=== PATIENT | female | born 1965 ===

== ENCOUNTER 2018-03-25 15:21 | Inpatient (IN) ==
[2018-03-25] MEDS ORDERED: Morphine Inj 4 MG/ML Vial ONE (15:27)
--- NOTE | 2018-03-25 15:50 | CT ---
EXAM DATE: 03/25/2018 3:46 PM EST AGE/SEX: 89 years / Female INDICATIONS: Trauma alert, fall. CLINICAL DATA: This is the patient's initial encounter. Patient reports that signs and symptoms have been present for 1 day and indicates a pain score of Nonresponsive. MEDICAL/SURGICAL HISTORY: Non-responsive. Non-responsive. RADIATION DOSE: 64.63 CTDI (mGy) COMPARISON: No prior exams available for comparison. TECHNIQUE: CT of the head without contrast. Using automated exposure control and adjustment of the mA and/or kV according to patient size, radiation dose was kept as low as reasonably achievable to ob tain optimal diagnostic quality images. DICOM format image data is available electronically for revi ew and comparison. FINDINGS: Cerebrum: The ventricles are normal for age. No evidence of midline shift, mass lesion, hemorrhage or acute infarction. No extraaxial fluid collections are seen. Posterior Fossa: The cerebellum and brainstem are intact. The 4th ventricle is midline. The cerebe llopontine angle is unremarkable. Extracranial: The visualized portion of the orbits is intact. Skull: The calvaria is intact. No evidence of skull fracture. CONCLUSION: 1. No acute intracranial abnormality . . Electronically signed by: Tyrell Spencer MD Board Certified Radiologist 03/25/2018 3:49 PM EST
[2018-03-25 15:52] LABS: Baso # (Auto) 0.2 th/mm3 (0.0-0.2); Baso % (Auto) 1.5 % (0.0-2.0); Eos # (Auto) 0.1 th/mm3 (0.0-0.4); Eos % (Auto) 1.1 % (0.0-4.0); Hematocrit 40.4 % (35.0-46.0); Hemoglobin 13.6 gm/dL (11.6-15.3); Lymph # (Auto) 3.6 th/mm3 (1.0-4.8); Mean Corpuscular HGB Conc 33.7 % (32.0-36.0); Mean Corpuscular Hemoglobin 33.1 pg (27.0-34.0); Mean Corpuscular Volume 98.3 fL (80.0-100.0); Mean Platelet Volume 8.4 fL (7.0-11.0); Mono # (Auto) 0.6 th/mm3 (0.0-0.9); Mono % (Auto) 4.4 % (0.0-8.0); Neut # (Auto) 8.3 th/mm3 (1.8-7.7); Platelet Count 330 th/mm3 (150-450); Red Blood Count 4.11 mil/mm3 (4.00-5.30); Red Cell Distribution Width 14.5 % (11.6-17.2); White Blood Count 12.8 th/mm3 (4.0-11.0)
--- NOTE | 2018-03-25 15:53 | CT ---
EXAM DATE: 03/25/2018 3:48 PM EST AGE/SEX: 89 years / Female INDICATIONS: Trauma alert, fall. CLINICAL DATA: This is the patient's initial encounter. Patient reports that signs and symptoms have been present for 1 day and indicates a pain score of Nonresponsive. MEDICAL/SURGICAL HISTORY: Non-responsive. Non-responsive. RADIATION DOSE: 19.52 CTDI (mGy) COMPARISON: [facility] – [place] THORACIC SPINE W/O CONTRAST, 03/25/2018. . TECHNIQUE: Contiguous axial images were obtained using helical multirow detector technique. The vol umetric data was post-processed with multiplanar reconstruction in oblique axial, sagittal, and coron al planes. Using automated exposure control and adjustment of the mA and/or kV according to patient s ize, radiation dose was kept as low as reasonably achievable to obtain optimal diagnostic quality yossi ges. DICOM format image data is available electronically for review and comparison. FINDINGS: Vertebrae: Normal vertebral body height. Degenerative changes Alignment: Normal. No subluxation. C2-3: The bony spinal canal is normal in size. No evidence of disc bulge or herniation. The neural foramina are bilaterally patent. C3-4: The bony spinal canal is normal in size. No evidence of disc bulge or herniation. The neural foramina are bilaterally patent. C4-5: Posterior disc osteophyte complex without canal stenosis. Mild bilateral neural foraminal narr owing. C5-6: Posterior disc osteophyte complex without canal stenosis. Moderate right and mild left neural foraminal narrowing. C6-7: Posterior disc osteophyte complex with mild canal stenosis. Moderate bilateral neural foramina l narrowing. C7-T1: The bony spinal canal is normal in size. No evidence of disc bulge or herniation. The neura l foramina are bilaterally patent. CONCLUSION: 1. Multilevel degenerative changes. 2. No fracture or spondylolisthesis. Electronically signed by: Tyrell Spencer MD Board Certified Radiologist 03/25/2018 3:52 PM EST
--- NOTE | 2018-03-25 15:56 | CT ---
EXAM DATE: 03/25/2018 3:51 PM EST AGE/SEX: 89 years / Female INDICATIONS: Trauma alert, fall. CLINICAL DATA: This is the patient's initial encounter. Patient reports that signs and symptoms have been present for 1 day and indicates a pain score of Nonresponsive. MEDICAL/SURGICAL HISTORY: Non-responsive. Non-responsive. RADIATION DOSE: 22.02 CTDI (mGy) COMPARISON: [facility] – [place] CERVICAL SPINE W/O CONTRAST, 03/25/2018. . TECHNIQUE: Contiguous axial images were acquired using a multirow detector CT scanner without contra st. Multiplanar reconstruction in the sagittal and coronal planes was performed. Using automated exp osure control and adjustment of the mA and/or kV according to patient size, radiation dose was kept a s low as reasonably achievable to obtain optimal diagnostic quality images. DICOM format image data is available electronically for review and comparison. FINDINGS: Vertebrae: Normal vertebral body height. Kyphosis and degenerative changes. Alignment: No spondylolisthesis. T1 - T2: Normal. T2 - T3: The thecal sac has a normal diameter. No evidence of disc bulge or protrusion. T3 - T4: The thecal sac has a normal diameter. No evidence of disc bulge or protrusion. T4 - T5: The thecal sac has a normal diameter. No evidence of disc bulge or protrusion. T5 - T6: The thecal sac has a normal diameter. No evidence of disc bulge or protrusion. T6 - T7: The thecal sac has a normal diameter. No evidence of disc bulge or protrusion. T7 - T8: The thecal sac has a normal diameter. No evidence of disc bulge or protrusion. T8 - T9: The thecal sac has a normal diameter. No evidence of disc bulge or protrusion. T9 - T10: The thecal sac has a normal diameter. No evidence of disc bulge or protrusion. T10 - T11: The thecal sac has a normal diameter. No evidence of disc bulge or protrusion. T11 - T12: The thecal sac has a normal diameter. No evidence of disc bulge or protrusion. T12 - L1: The thecal sac has a normal diameter. No evidence of disc bulge or protrusion. CONCLUSION: 1. Kyphosis and degenerative changes. 2. No fracture. Electronically signed by: Tyrell Spencer MD Board Certified Radiologist 03/25/2018 3:54 PM EST
[2018-03-25 16:02] LABS: Activated Partial Thrombo Time 21.9 sec (23.4-31.7); Prothrombin Time 9.9 sec (9.8-11.6)
[2018-03-25] MEDS ORDERED: Morphine Inj 4 MG, Morphine Inj 2 MG IV.PUSH ONE ×2 (16:40)
--- NOTE | 2018-03-25 18:39 | MR ---
EXAM DATE: 03/25/2018 6:34 PM EST AGE/SEX: 89 years / Female INDICATIONS: Trauma. CLINICAL DATA: This is the patient's initial encounter. Patient reports that signs and symptoms have been present for 1 day and indicates a pain score of 0/10. MEDICAL/SURGICAL HISTORY: . Crohn's disease. Cholecystectomy. Appendectomy. Tubal ligation. COMPARISON: No prior exams available for comparison. TECHNIQUE: Multiplanar, multisequence MRI examination of the cervical spine was performed without co ntrast. FINDINGS: At C2-3-4 there is no significant abnormality. At C4-5 there is a broad-based disc osteophyte complex effacing the thecal sac minimal impression on the anterior cord. Mild foraminal stenosis. At C5-6 there is a broad-based disc protrusion and osteophytic ridging, worse on the right side with the moderate AP canal stenosis, mild cord compression and right greater than left foraminal stenosis. At C6-7 there is a broad-based disc protrusion with a mild AP canal stenosis and mild impression and flattening of the cord. Mild bilateral foraminal stenosis. At C7-T1 there is no significant abnormality. No acute fracture or subluxation. No definite cord signal abnormality. CONCLUSION: 1. At C5-6 there is a broad-based disc protrusion, worse on the right side with moderate AP canal st enosis, mild cord compression and foraminal stenosis, worse on the right. 2. At C6-7 is a broad-based disc protrusion with mild AP canal stenosis and mild flattening of the c ord. 3. At C4-5 there is a mild impression on the anterior cord from disc protrusion. 4. No acute fracture or spondylolisthesis. Electronically signed by: Amor Michael MD Board Certified Radiologist 03/25/2018 6:37 PM EST
[2018-03-25] MEDS ORDERED: Morphine Inj 4 MG/ML Vial IV.PUSH ONE (19:00)
--- NOTE | 2018-03-25 19:21 | ED ---
HPI General Chief Complaint: Trauma Alert Stated Complaint: Trauma Alert Time Seen by Provider: 03/25/18 19:48 Source: patient Mode of arrival: ambulatory Limitations: no limitations History of Present Illness HPI narrative: This is a patient who presents having had a mechanical fall slipping backwards onto a doorway prior to arrival hitting her head and her mid back. She is reporting severe neck and upper back pain, constant, moderate severity associated with numbness and tingling in her left fourth and fifth digits and some weakness in her left lower extremity with some numbness in her left small toe. She does have a history of chronic spinal stenosis and disc herniations in the cervical spine. She is not sure if she lost consciousness. Related Data Home Medications Medication Instructions Recorded Confirmed allopurinol 100 mg PO DAILY 03/25/18 03/25/18 carvedilol 3.125 mg PO BID 03/25/18 03/25/18 clonazepam 0.5 mg PO TID 03/25/18 03/25/18 mesalamine 400 mg PO QID 03/25/18 03/25/18 pantoprazole [Protonix] 40 mg PO DAILY 03/25/18 03/25/18 clonazepam 0.05 mg/kg PO TID 03/30/18 03/30/18 Allergies Allergy/AdvReac Type Severity Reaction Status Date / Time piperacillin [From Zosyn] Allergy Anaphylaxis Verified 03/25/18 16:11 Sulfa (Sulfonamide Allergy Anaphylaxis Verified 03/25/18 16:11 Antibiotics) tazobactam [From Zosyn] Allergy Anaphylaxis Verified 03/25/18 16:11 Review of Systems ROS: all other systems reviewed are negative [facility] Medical History Medical History Bulging disc (Acute) Chronic ulcerative colitis (Acute) Crohns disease (Acute) FHx: cholecystectomy (Acute) Spinal stenosis (Acute) Surgical History Surgical History History of appendectomy (Acute) Social History Social History Substance History: No History of Abuse Second Hand Smoke Exposure: No Smoking Status: Former smoker How Often Do You Have a Drink Containing Alcohol: Never Recent Travel in [facility] within the Last 8 Weeks: No Recent Out of Country Travel within the Last 8 Weeks: No Immunization History Tetanus Immunization: <5 Years Exam Narrative Exam Narrative: GENERAL:Well appearing, no acute distress SKIN: Focused skin assessment warm and dry. HEAD: Atraumatic. Normocephalic. EYES: Pupils equal and round. No injection or drainage. ENT: Moist mucous membranes NECK: Trachea midline. Cervical collar is immobilized. CARDIOVASCULAR: Regular rate and rhythm. No murmur appreciated. RESPIRATORY: Clear to auscultation. Breath sounds equal bilaterally. GASTROINTESTINAL: Abdomen soft, non-tender, nondistended. MUSCULOSKELETAL: No obvious deformities. NEUROLOGICAL: Awake and alert. No obvious cranial nerve deficits. Decreased sensation in the left fourth and fifth digit. 4 out of 5 strength in left lower extremity. PSYCHIATRIC: Appropriate mood and affect; insight and judgment normal. Course Initial Documented Vital Signs Pulse Oximetry 97 03/25/18 15:35 Last Documented Vital Signs Temperature 99.0 F 03/30/18 16:00 Pulse Rate 81 03/30/18 16:00 Respiratory Rate 18 03/30/18 16:00 Blood Pressure 113/74 03/30/18 17:55 Pulse Oximetry 93 L 03/30/18 16:00 Sign Out Sign Out Data: Patient Sign Out occurred on 03/25/18 at 19:50. Patient's care was discussed, and care was transferred from Danica Chowdhury MD to Madelaine Weinberg. Sign Out Comment: Trauma patient s/p fall pending neurosurgery evaluation Last updated by Danica Chowdhury MD at 03/25/18 19:48 Post-Handoff Eval: Patient was brought in as a trauma alert for a fall and complaining of left arm weakness. She was seen by the previous ER physician. Please refer to her history and physical for further details. Imaging studies including MRI of the cervical spine was done which shows severe disc disease. Signout was to formulate a plan regarding neurosurgical consultation and recommendation. I discussed the case with Dr. Morales who is on for neurosurgery and he has come to see the patient and has decided to admit her for the severe disc disease and surgical correction. I discussed it with Dr. Steen who is on-call for trauma who will admit the patient. Patient is hemodynamically stable with no further worsening of the neurologic deficit. Medical Decision Making MDM Narrative Medical decision making narrative: This is a patient who presented to the emergency department as a trauma alert. She was made a level [address]s were obtained of the head, cervical spine and thoracic spine which were reassuring. Patient continued to have neurologic symptoms so a cervical spine MRI was obtained which demonstrates several disc herniations with C6-C7 impinging on the cord. This appears to be acute on chronic. Neurosurgery was consulted and will see the patient. Patient was signed out to Dr. Weinberg. Case was discussed with Dr. Steen the trauma surgeon at 1455. Level 2 trauma alert was called. Medical Screen Exam Complete: Yes Emergency Medical Condition: Yes Lab Data Result diagrams: 03/28/18 04:33 03/27/18 04:53 Lab Results 03/25/18 03/25/18 03/25/18 Range/Units 15:30 15:30 15:30 WBC 12.8 H (4.0-11.0) th/mm3 RBC 4.11 (4.00-5.30) mil/mm3 Hgb 13.6 (11.6-15.3) gm/dL POC Hgb (Calc) 13.3 (11.6-15.3) g/dL Hct 40.4 (35.0-46.0) % POC Hct 39.0 (35-46.0) % MCV 98.3 (80.0-100.0) fL MCH 33.1 (27.0-34.0) pg MCHC 33.7 (32.0-36.0) % RDW 14.5 (11.6-17.2) % Plt Count 330 (150-450) th/mm3 MPV 8.4 (7.0-11.0) fL Neut % (Auto) 65.0 (16.0-70.0) % Lymph % (Auto) 28.0 (9.0-44.0) % [place] % (Auto) 4.4 (0.0-8.0) % Eos % (Auto) 1.1 (0.0-4.0) % Baso % (Auto) 1.5 (0.0-2.0) % Neut # (Auto) 8.3 H (1.8-7.7) th/mm3 Lymph # (Auto) 3.6 (1.0-4.8) th/mm3 [place] # (Auto) 0.6 (0.0-0.9) th/mm3 Eos # (Auto) 0.1 (0.0-0.4) th/mm3 Baso # (Auto) 0.2 (0.0-0.2) th/mm3 WBC Differential . Differential Comment Auto diff final PT 9.9 (9.8-11.6) sec INR 1.0 Ratio APTT 21.9 L (23.4-31.7) sec POC Sodium 141 (137-144) mmol/L Sodium (136-145) meq/L POC Potassium 4.8 (3.6-5.0) mmol/L Potassium (3.5-5.1) meq/L POC Chloride 106 (102-111) mmol/L Chloride (98-107) meq/L Carbon Dioxide (21.0-32.0) meq/L Anion Gap (5-15) meq/L POC BUN 8 (5-21) mg/dL BUN (7-18) mg/dL Creatinine (0.50-1.00) mg/dL POC Creatinine 0.7 (0.6-1.3) mg/dL Estimated GFR (>89) mL/min POC Glucose 98 (68-110) mg/dL Random Glucose (74-106) mg/dL Calcium (8.5-10.1) mg/dL Urine Color (Yellw/Straw) Urine Clarity (Clear) Urine pH (5.0-8.5) Ur Specific Marshall (1.002-1.035) Urine Protein (Neg-Trace) mg/dL Urine Glucose (UA) (Negative) mg/dL Urine Ketones (Negative) mg/dL Urine Occult Blood (Negative) Urine Nitrate (Negative) Urine Bilirubin (Negative) Urine Urobilinogen (Less than 2) mg/dL Ur Leukocyte Esterase (Negative) Urine RBC (0-3) /hpf Urine WBC (0-5) /hpf Ur Squamous Epith Cells (0-5) /hpf Micro UA Comment Ur Microscopic Review Urine Culture Comments Blood Type Antibody Screen 03/25/18 03/27/18 03/27/18 Range/Units 15:30 04:53 04:53 WBC 8.5 (4.0-11.0) th/mm3 RBC 3.63 L (4.00-5.30) mil/mm3 Hgb 11.7 (11.6-15.3) gm/dL POC Hgb (Calc) (11.6-15.3) g/dL Hct 35.5 (35.0-46.0) % POC Hct (35-46.0) % MCV 97.6 (80.0-100.0) fL MCH 32.3 (27.0-34.0) pg MCHC 33.1 (32.0-36.0) % RDW 14.4 (11.6-17.2) % Plt Count 311 (150-450) th/mm3 MPV 8.0 (7.0-11.0) fL Neut % (Auto) 57.9 (16.0-70.0) % Lymph % (Auto) 33.6 (9.0-44.0) % [place] % (Auto) 6.1 (0.0-8.0) % Eos % (Auto) 1.5 (0.0-4.0) % Baso % (Auto) 0.9 (0.0-2.0) % Neut # (Auto) 4.9 (1.8-7.7) th/mm3 Lymph # (Auto) 2.9 (1.0-4.8) th/mm3 [place] # (Auto) 0.5 (0.0-0.9) th/mm3 Eos # (Auto) 0.1 (0.0-0.4) th/mm3 Baso # (Auto) 0.1 (0.0-0.2) th/mm3 WBC Differential . Differential Comment Auto diff final PT (9.8-11.6) sec INR Ratio APTT (23.4-31.7) sec POC Sodium (137-144) mmol/L Sodium 143 (136-145) meq/L POC Potassium (3.6-5.0) mmol/L Potassium 3.7 (3.5-5.1) meq/L POC Chloride (102-111) mmol/L Chloride 107 (98-107) meq/L Carbon Dioxide 30.0 (21.0-32.0) meq/L Anion Gap 6 (5-15) meq/L POC BUN (5-21) mg/dL BUN 4 L (7-18) mg/dL Creatinine 0.83 (0.50-1.00) mg/dL POC Creatinine (0.6-1.3) mg/dL Estimated GFR 72 L (>89) mL/min POC Glucose (68-110) mg/dL Random Glucose 113 H (74-106) mg/dL Calcium 8.5 (8.5-10.1) mg/dL Urine Color (Yellw/Straw) Urine Clarity (Clear) Urine pH (5.0-8.5) Ur Specific Marshall (1.002-1.035) Urine Protein (Neg-Trace) mg/dL Urine Glucose (UA) (Negative) mg/dL Urine Ketones (Negative) mg/dL Urine Occult Blood (Negative) Urine Nitrate (Negative) Urine Bilirubin (Negative) Urine Urobilinogen (Less than 2) mg/dL Ur Leukocyte Esterase (Negative) Urine RBC (0-3) /hpf Urine WBC (0-5) /hpf Ur Squamous Epith Cells (0-5) /hpf Micro UA Comment Ur Microscopic Review Urine Culture Comments Blood Type A Positive Antibody Screen Negative 03/28/18 03/28/18 Range/Units 04:33 17:25 WBC 8.4 (4.0-11.0) th/mm3 RBC 3.42 L (4.00-5.30) mil/mm3 Hgb 11.4 L (11.6-15.3) gm/dL POC Hgb (Calc) (11.6-15.3) g/dL Hct 33.3 L (35.0-46.0) % POC Hct (35-46.0) % MCV 97.3 (80.0-100.0) fL MCH 33.4 (27.0-34.0) pg MCHC 34.3 (32.0-36.0) % RDW 14.1 (11.6-17.2) % Plt Count 245 (150-450) th/mm3 MPV 7.9 (7.0-11.0) fL Neut % (Auto) 57.2 (16.0-70.0) % Lymph % (Auto) 33.6 (9.0-44.0) % [place] % (Auto) 6.7 (0.0-8.0) % Eos % (Auto) 1.8 (0.0-4.0) % Baso % (Auto) 0.7 (0.0-2.0) % Neut # (Auto) 4.8 (1.8-7.7) th/mm3 Lymph # (Auto) 2.8 (1.0-4.8) th/mm3 [place] # (Auto) 0.6 (0.0-0.9) th/mm3 Eos # (Auto) 0.2 (0.0-0.4) th/mm3 Baso # (Auto) 0.1 (0.0-0.2) th/mm3 WBC Differential . Differential Comment Auto diff final PT (9.8-11.6) sec INR Ratio APTT (23.4-31.7) sec POC Sodium (137-144) mmol/L Sodium (136-145) meq/L POC Potassium (3.6-5.0) mmol/L Potassium (3.5-5.1) meq/L POC Chloride (102-111) mmol/L Chloride (98-107) meq/L Carbon Dioxide (21.0-32.0) meq/L Anion Gap (5-15) meq/L POC BUN (5-21) mg/dL BUN (7-18) mg/dL Creatinine (0.50-1.00) mg/dL POC Creatinine (0.6-1.3) mg/dL Estimated GFR (>89) mL/min POC Glucose (68-110) mg/dL Random Glucose (74-106) mg/dL Calcium (8.5-10.1) mg/dL Urine Color Yellow (Yellw/Straw) Urine Clarity Clear (Clear) Urine pH 6.0 (5.0-8.5) Ur Specific [place] 1.006 (1.002-1.035) Urine Protein Negative (Neg-Trace) mg/dL Urine Glucose (UA) Negative (Negative) mg/dL Urine Ketones Negative (Negative) mg/dL Urine Occult Blood Moderate H (Negative) Urine Nitrate Negative (Negative) Urine Bilirubin Negative (Negative) Urine Urobilinogen Less than 2 (Less than 2) mg/dL Ur Leukocyte Esterase Negative (Negative) Urine RBC 1 (0-3) /hpf Urine WBC 1 (0-5) /hpf Ur Squamous Epith Cells 1 (0-5) /hpf Micro UA Comment Culture not ind Ur Microscopic Review Not Reportable Urine Culture Comments Culture not ind Blood Type Antibody Screen Imaging Data Radiologist's impression: Thoracic Spine CT 03/25/18 00:00 CONCLUSION: 1. Kyphosis and degenerative changes. 2. No fracture. Cervical Spine CT 03/25/18 15:30 CONCLUSION: 1. Multilevel degenerative changes. 2. No fracture or spondylolisthesis. Head CT 03/25/18 15:30 CONCLUSION: 1. No acute intracranial abnormality . . Cervical Spine MRI 03/25/18 16:44 CONCLUSION: 1. At C5-6 there is a broad-based disc protrusion, worse on the right side with moderate AP canal stenosis, mild cord compression and foraminal stenosis, worse on the right. 2. At C6-7 is a broad-based disc protrusion with mild AP canal stenosis and mild flattening of the cord. 3. At C4-5 there is a mild impression on the anterior cord from disc protrusion. 4. No acute fracture or spondylolisthesis. Venous Doppler Study 03/27/18 00:00 CONCLUSION: Normal venous Doppler study of the right upper extremity. Chest X-Ray 03/27/18 06:00 CONCLUSION: No acute cardiopulmonary process Discharge Plan Discharge Disposition Patient Disposition: ED Admit(ED Internal Use Only) Discharge Condition Condition: Stable Discharge Order Discharge Orders: ED Use Only Admit Order (Routine); Ordered 03/25/18 Ordered By: Madelaine Weinberg Physicians Team ED Provider: Madelaine Weinberg Primary Care Provider: Primary Care Physici,No Attending Provider: Sincere Steen Other Providers: Luis Morales ; Kelvin Mauricio ; Zeke Gong ; Systems[employer] ; aJved Canela ; Olivia Marie ; Sincere Steen ; Jena Blanco ; Tammy Castelan ; Joanie Deras ; Hilda Celaya Status ED Status: Left Department Discharge Information Discharge Date/Time: 03/25/18 23:35
--- NOTE | 2018-03-25 19:50 | P.CONNS ---
History of Present Illness Service: Neurosurgery Consult date: 03/25/18 Requesting Physician: Danica Chowdhury Reason for Consult: Neck pain, disc herniations Primary Care Provider: No Primary Care Physician History of Present Illness: I was asked by Dr. Chowdhury to see and evaluate patient who presents to [facility] ER s/p mechanical fall slipping backwards onto a doorway prior to arrival hitting her head and her mid back. She is reporting severe neck and upper back pain, constant, moderate severity associated with numbness and tingling in her left fourth and fifth digits and some weakness in her left lower extremity with some numbness in her left small toe. She does have a history of chronic spinal stenosis and disc herniations in the cervical spine. She is not sure if she lost consciousness. Review of Systems All other systems reviewed negative except as stated in HPI PMFSH - History History Provided By: Patient - Medical History Medical History: Medical History (Last Reviewed 03/25/18 @ 19:48 by Luis Morales MD) Bulging disc Chronic ulcerative colitis Crohns disease FHx: cholecystectomy Spinal stenosis - Surgical History Surgical History: Surgical History (Last Reviewed 03/25/18 @ 19:48 by Luis Morales MD) History of appendectomy - Tobacco History Smoking Status: Former smoker - Alcohol History How Often Do You Have a Drink Containing Alcohol: Never - Substance Use History Substance History: No History of Abuse - Travel History Recent Travel in the [place] Within the Last 8 Weeks: No Recent Travel Out of the Country Within the Last 8 Weeks: No - Immunization History Tetanus Immunization: <5 Years Medications and Allergies Allergies Allergy/AdvReac Type Severity Reaction Status Date / Time piperacillin [From Zosyn] Allergy Anaphylaxis Verified 03/25/18 16:11 Sulfa (Sulfonamide Allergy Anaphylaxis Verified 03/25/18 16:11 Antibiotics) tazobactam [From Zosyn] Allergy Anaphylaxis Verified 03/25/18 16:11 Home Medications Medication Instructions Recorded Confirmed Type allopurinol 100 mg PO DAILY 03/25/18 03/25/18 History carvedilol 3.125 mg PO BID 03/25/18 03/25/18 History clonazepam 0.5 mg PO TID 03/25/18 03/25/18 History mesalamine 400 mg PO QID 03/25/18 03/25/18 History pantoprazole [Protonix] 40 mg PO DAILY 03/25/18 03/25/18 History Exam Vital signs: Vital Signs 03/25/18 15:35 03/25/18 16:03 03/25/18 16:07 Temperature 99.1 F Pulse Rate 105 H 90 Respiratory Rate 23 18 Blood Pressure 120/70 150/76 H Pulse Oximetry 97 97 98 03/25/18 16:09 03/25/18 17:07 03/25/18 18:00 Temperature Pulse Rate 105 H 88 82 Respiratory Rate 20 20 Blood Pressure 138/85 132/71 Pulse Oximetry 98 97 96 03/25/18 19:10 03/25/18 19:22 Temperature Pulse Rate 87 Respiratory Rate 20 20 Blood Pressure 159/80 H Pulse Oximetry 97 Intake & Output 03/25/18 03/25/18 03/26/18 06:59 18:59 06:59 Weight 76.657 kg - Constitutional mild distress - Routine HEENT Exam Head: Present: normocephalic, atraumatic Eye: Present: EOMI, PERRL, normal accommodation ENT: Present: mucous membranes moist, oropharynx clear - Routine Neck Exam Present: trachea midline Comments: some posterior cervical spine muscle spasm Cervical collar in place. - Routine Respiratory Exam Present: CTA bilaterally - Routine Cardiovascular Exam Present: RRR - Routine Abdominal Exam Present: soft, normoactive bowel sounds - Routine Extremities Exam Present: full ROM, pulses intact, normal capillary refill - Routine Skin Exam Present: intact, warm, normal turgor - Routine Neurological Exam Mental status: AAOx3 Speech: fluent CNII-XII: intact Motor: Left C6/7 weakness 4+/5, Sensory: Decreased LT, decreased PP along Left C6 distribution - Detailed Neurological Exam: Coma Scale Eye Opening: Spontaneous Verbal Response: Oriented Motor Response: Obey commands Suni Coma Scale Total: 15 - Routine Psychiatric Exam Present: normal affect, normal thought process, cooperative Results - Laboratory Findings CBC and BMP: 03/25/18 15:30 Abnormal lab findings: Abnormal Labs 03/25/18 03/25/18 15:30 15:30 WBC 12.8 H Neut # (Auto) 8.3 H APTT 21.9 L - Diagnostic Findings EKG: report reviewed, image reviewed Additional findings: Head, cervical and thoracic CT Cervical MRI all were reviewed. Assessment and Plan - Plan 54 yo female with multi-level cervical disease,with progressive neck pain and left upper extremity radiculopathy s/p fall. GCS-15 Acute on chronic disc disease would admit for pain control Neuro checks q 4hrs soft cervical collar for comfort No indications for steroid therapy Will follow
[2018-03-25] MEDS ORDERED: HYDROmorphone PF Inj 1 MG/ML Ampul IV.PUSH PRN (22:11)
[2018-03-25] MEDS: Sod Chloride 0.9% Inj 1,000 ML IV.CONT SCH (22:49)
[2018-03-25] MEDS: Docusate Sodium 100 MG Capsule PO SCH (22:49)
[2018-03-25] MEDS ORDERED: Pantoprazole Inj 40 MG Vial IV.PUSH SCH (23:00)
[2018-03-26] MEDS: Enoxaparin Inj 30 MG/0.3 ML Syringe SQ SCH ×3 (01:45→20:31)
[2018-03-26] MEDS ORDERED: Chlorhexidine Gluconate 2% 1 Pack (2 Cloths) TOPICAL SCH (04:00)
[2018-03-26] MEDS ORDERED: Chlorhexidine Gluconate 2% 1 Pack (2 Cloths) TOPICAL PRN (04:00)
[2018-03-26] MEDS: Sod Chloride 0.9% Inj 1,000 ML IV.CONT SCH ×2 (08:17→18:32)
[2018-03-26] MEDS: Docusate Sodium 100 MG Capsule PO SCH ×2 (08:18→20:31)
[2018-03-26] MEDS: HYDROmorphone PF Inj 0.5 MG/0.5 ML Syringe IV.PUSH PRN ×4 (08:26→21:54)
[2018-03-26] MEDS: Allopurinol 100 MG Tablet PO SCH (08:26)
--- NOTE | 2018-03-26 09:19 | MH ---
cc: Sincere Steen MD DATE OF ADMISSION: 03/25/2018 CHIEF COMPLAINT: Status post fall, neck pain. HISTORY OF PRESENT ILLNESS: The patient is a 54-year-old female who presents status post slip and fall. The patient was noted to lose her balance and fell in the doorway, hitting her neck and back, complaining of severe neck and upper back pain, also complains of weakness and numbness in the left fourth and fifth digits and left lower extremity. The patient noted to come to the trauma bay as a level 2 trauma. She was noted to be hemodynamically stable, in a C-collar, on a back board. Primary and secondary surveys were done. The patient was found to have a normal CT head. No fractures on CT C-spine. Further workup including MRI showed stenosis and some flattening of cord. General neurosurgery consultations. The patient noted to have history of cervical and upper back pain in the past. This is noted to be somewhat acute on chronic. The patient denied any loss of consciousness and otherwise no complaints. PAST MEDICAL HISTORY: Ulcerative colitis, Crohn disease, inflammatory bowel disease, acute appendicitis, back pain. PAST SURGICAL HISTORY: Appendectomy. SOCIAL HISTORY: History of smoking. Denies current smoking, ETOH or IVDA. ALLERGIES: PIPERACILLIN, SULFA, AND TAZOBACTAM. MEDICATIONS: See EMR, prednisone. FAMILY HISTORY: Mother with hypertension. Father with coronary artery disease and OR. REVIEW OF SYSTEMS: A 12-point review of systems done, otherwise negative except as above. PHYSICAL EXAMINATION: GENERAL: No acute distress. VITAL SIGNS: Temperature 99.1, pulse 105, respirations 23, blood pressure 120/70, saturation 97%. HEENT: Pupils equal, round and reactive. NECK: C-collar in place. LUNGS: Clear to auscultation, bilateral expansion. Clavicles nontender. HEART: S1, S2, regular. ABDOMEN: Soft, nontender, nondistended. EXTREMITIES: Warm and well perfused. NEUROLOGIC: With 3.5-4/5 motor left upper and lower extremity, 5/5 motor right upper and lower extremity. Sensation intact with the exception of left upper and lower extremity. BACK: No step-offs or tenderness to palpation lower cervical, upper thoracic. PSYCHIATRIC: Appropriate mood. Appropriate insight. LABORATORY AND DIAGNOSTIC DATA: WBC is 12.8, hemoglobin 13.6, hematocrit 40.4, platelets 330. Sodium 141, potassium 4.8, chloride 106, BUN 8, creatinine 0.7, glucose 98. CT scans reviewed by myself showing: CT head: No evidence of fracture, DJD. CT C-spine: DJD, no fracture. CT T-spine: Kyphosis and degenerative changes, no fracture. MRI spine: C5-C6 broad-based protrusion of disc, mild cord compression C6-C7, disc protrusion, canal stenosis C4-C5, mild impression and anterior cord protrusion. No evidence of fracture. ASSESSMENT: 1. The patient is a 54-year-old female status post trip and fall. 2. The patient with acute on chronic spinal stenosis, symptomatic. PLAN: After a full workup, the patient with the above-noted issues. At this point, the patient needs close monitoring with neuro checks. The patient can go to surgical floor. Consultation for neurosurgery for operative planning and further management. The patient can have a diet, pain control, IV fluids, DVT prophylaxis. The patient noted with a history of superficial left upper extremity clot, not currently on treatment. Will continue to follow the patient for further investigation of ongoing evidence of other injuries. MD RICARDO Whittington/freddie/guera , 03:27 AM , 03:36 AM
--- NOTE | 2018-03-26 09:30 | P.PN ---
Subjective Interval history: Trauma PTD: 1 Patient sitting up in bed. No distress noted. Patient complains of chronic nausea, "well I have Crohn's and ulcerative colitis." Patient complains of pain to bilateral arms and left leg. Patient complains of having no feeling to left ring finger and left pinky. Additionally, patient is weak to left lower extremity, and describes no feeling to her left fourth and fifth toes. "It feels like my spine is being squished, and my head is going to pop. It is un-freaking real." Patient states, "Dr. Morales said I am going to have surgery on Tuesday." Physical Exam Vital signs: Vital Signs 03/25/18 15:35 03/25/18 16:03 03/25/18 16:07 Temperature 99.1 F Pulse Rate 105 H 90 Respiratory Rate 23 18 Blood Pressure 120/70 150/76 H Pulse Oximetry 97 97 98 03/25/18 16:09 03/25/18 17:07 03/25/18 18:00 Temperature Pulse Rate 105 H 88 82 Respiratory Rate 20 20 Blood Pressure 138/85 132/71 Pulse Oximetry 98 97 96 03/25/18 19:10 03/25/18 19:22 03/25/18 22:29 Temperature Pulse Rate 87 Respiratory Rate 20 20 Blood Pressure 159/80 H Pulse Oximetry 97 98 03/25/18 22:57 03/25/18 23:15 03/26/18 04:00 Temperature 97.6 F 97.9 F Pulse Rate 78 75 76 Respiratory Rate 16 18 18 Blood Pressure 137/71 146/83 H 112/70 Pulse Oximetry 95 93 L 95 Intake & Output 03/25/18 03/26/18 03/26/18 18:59 06:59 18:59 Intake Total 0 / 0 900 / 900 Balance 0 / 0 900 / 900 Weight 76.657 kg 74.7 kg Intake: IV 900 / 900 NS Inj 1,000 ML @ 100 mls/hr IV 900 / 900 .CONT .Q10H [facility] Rx#:[id number] Oral 0 / 0 Other: # Voids 2 # Bowel Movements 0 Narrative: GENERAL: This is a 50-lacey year old female sitting up in bed. SKIN: Warm and dry. HEAD: Atraumatic. Normocephalic. EYES: PERRLA ENT: No nasal bleeding or discharge. Mucous membranes pink and moist. NECK: Soft cervical collar in place. Trachea midline. No JVD. CARDIOVASCULAR: Regular rate and rhythm. RESPIRATORY: No accessory muscle use. Lungs are clear to auscultation. Breath sounds equal bilaterally. No distress or dyspnea. GASTROINTESTINAL: BS + x 4 quads. Abdomen soft, non-tender, nondistended. MUSCULOSKELETAL: Extremities without cyanosis, or edema. + peripheral pulses x 4 extremities. Warm with good capillary refill. Patient describes not having feeling to her left ring and pinky finger. MAEW. Left lower extremity is weaker than right. Patient also describes not having feeling to her left fourth and fifth toes. NEUROLOGICAL: Awake and alert. Normal speech and pattern. Results - Labs CBC & Chem 7: 03/25/18 15:30 Laboratory Results - last 24 hr 03/25/18 03/25/18 03/25/18 15:30 15:30 15:30 WBC 12.8 H RBC 4.11 Hgb 13.6 POC Hgb (Calc) 13.3 Hct 40.4 POC Hct 39.0 MCV 98.3 MCH 33.1 MCHC 33.7 RDW 14.5 Plt Count 330 MPV 8.4 Neut % (Auto) 65.0 Lymph % (Auto) 28.0 Logan % (Auto) 4.4 Eos % (Auto) 1.1 Baso % (Auto) 1.5 Neut # (Auto) 8.3 H Lymph # (Auto) 3.6 Logan # (Auto) 0.6 Eos # (Auto) 0.1 Baso # (Auto) 0.2 WBC Differential . Differential Comment Auto diff final PT 9.9 INR 1.0 APTT 21.9 L POC Sodium 141 POC Potassium 4.8 POC Chloride 106 POC BUN 8 POC Creatinine 0.7 POC Glucose 98 Blood Type Antibody Screen 03/25/18 15:30 WBC RBC Hgb POC Hgb (Calc) Hct POC Hct MCV MCH MCHC RDW Plt Count MPV Neut % (Auto) Lymph % (Auto) Logan % (Auto) Eos % (Auto) Baso % (Auto) Neut # (Auto) Lymph # (Auto) Logan # (Auto) Eos # (Auto) Baso # (Auto) WBC Differential Differential Comment PT INR APTT POC Sodium POC Potassium POC Chloride POC BUN POC Creatinine POC Glucose Blood Type A Positive Antibody Screen Negative - Imaging Impressions Thoracic Spine CT 03/25/18 00:00 CONCLUSION: 1. Kyphosis and degenerative changes. 2. No fracture. Cervical Spine CT 03/25/18 15:30 CONCLUSION: 1. Multilevel degenerative changes. 2. No fracture or spondylolisthesis. Head CT 03/25/18 15:30 CONCLUSION: 1. No acute intracranial abnormality . . Cervical Spine MRI 03/25/18 16:44 CONCLUSION: 1. At C5-6 there is a broad-based disc protrusion, worse on the right side with moderate AP canal stenosis, mild cord compression and foraminal stenosis, worse on the right. 2. At C6-7 is a broad-based disc protrusion with mild AP canal stenosis and mild flattening of the cord. 3. At C4-5 there is a mild impression on the anterior cord from disc protrusion. 4. No acute fracture or spondylolisthesis. Assessment and Plan - Assessment (1) Cord compression Code(s): G95.20 - Unspecified cord compression Status: Acute (2) Protrusion of cervical intervertebral disc Code(s): M50.20 - Other cervical disc displacement, unspecified cervical region Status: Acute - Plan [place]: This is a 75-wge-mstj-old female who sustained a mechanical fall. She slipped and fell backwards into a doorway. She hit her head, and mid back. She complained initially of tingling to her hands and weakness to her left lower extremity. GCS 15. INJURIES: C4-C5 mild disc protrusion and impression on anterior cord C5-C6 disc protrusion w/ mild cord compression C6-C7 disc herniations, impingement on the cord (chronic) PMHx: Chronic spinal stenosis. Disc herniations. Ulcerative colitis. Crohn's disease. Procedures: Consults: Neurosurgery. Case management. Diet: Regular diet. Tolerating po diet. Encourage good po intake with each meal. Pulmonary: Encourage good pulmonary toileting. IS at bedside and pt encouraged to use. Rationale for use explained to patient, and verbalized understanding. PAIN Management: Oxycodone 5-10 mg q4h. Dilaudid 0.5 mg q 4h for breakthrough pain. Added Neurontin 300 mg TID. Activity: OOB. PT and OT ordered. GI prophylaxis: Protonix 40 mg po Bowel regimen: Colace. MOM. Lactulose PRN. LBM: 0 DVT prophylaxis: Mechanical VTE with SCDs. Chemical management with Lovenox 30 mg BID SQ. DC Planning: Case management consulted for assistance with final discharge disposition. Await PT/OT re-eval after surgery on Tuesday with neurosurgery. Emotional support provided to patient and family at bedside and plan of care discussed. Discussed with RN at bedside. Discussed pt condition and plan of care with collaborating trauma surgeon. Patient is hemodynamically stable and being managed on the med/surg floor. The trauma team will round each day, and evaluate plan of care on a daily basis. C4-C5 mild disc protrusion and impression on anterior cord C5-C6 disc protrusion w/ mild cord compression C6-C7 disc herniations, impingement on the cord (chronic) Neurosurgery consulted and assisting in management and care Per patient, plan is for spinal stabilization surgery on Tuesday Supportive care Serial neuro checks Monitor closely Neurosurgery does not feel that steroids are warranted at this time Pain management PT and OT ordered Encourage out of bed -with assist Soft cervical collar in place Bowel regimen Lovenox and SCDs for DVT prophylaxis Pre-existing conditions Chronic spinal stenosis Disc herniations. Ulcerative colitis. Crohn's disease. Monitor closely Resume home medications Coreg 3.125 mg BID. Allopurinol. Mesalamine
--- NOTE | 2018-03-26 13:45 | P.DCO ---
- Physical Therapy Order: Evaluate and treat, Improve ambulation, Strength and gait training - Occupational Therapy Order: Evaluate and treat, Improve ADL, Gross motor coordination - Home Health Nursing Order: Medical education, Signs/symptoms of disease process, Medication education-adverse effect, Nursing assessment with vital signs - Case Management Consult Case Management Consult-Home Health: Yes - Certification I have seen patient Debbie Laws on 03/26/18. My clinical findings support the need for the requested home health care services because: Limited mobility due to disease progression, Deconditioned with increased weakness, Limited ability to care for self, High risk of falls, Infection with risk of complications I certify that my clinical findings support that this patient is homebound because: Post-op weakness, Impaired cognitive ability/safety, Unsteady gait/balance, Unsafe to leave home unassisted, Unable to use public transportation
[2018-03-26] MEDS ORDERED: Morphine Inj 4 MG/ML Vial ONE (14:56)
[2018-03-26] MEDS: Gabapentin 300 MG Capsule PO SCH (17:14)
[2018-03-26] MEDS: Mesalamine 800 MG Tablet DR PO SCH (17:52)
[2018-03-27] MEDS: HYDROmorphone PF Inj 0.5 MG/0.5 ML Syringe IV.PUSH PRN ×4 (02:44→19:33)
[2018-03-27 05:17] LABS: Baso # (Auto) 0.1 th/mm3 (0.0-0.2); Baso % (Auto) 0.9 % (0.0-2.0); Eos # (Auto) 0.1 th/mm3 (0.0-0.4); Eos % (Auto) 1.5 % (0.0-4.0); Hematocrit 35.5 % (35.0-46.0); Hemoglobin 11.7 gm/dL (11.6-15.3); Lymph # (Auto) 2.9 th/mm3 (1.0-4.8); Lymph % (Auto) 33.6 % (9.0-44.0); Mean Corpuscular HGB Conc 33.1 % (32.0-36.0); Mean Corpuscular Hemoglobin 32.3 pg (27.0-34.0); Mean Corpuscular Volume 97.6 fL (80.0-100.0); Mono # (Auto) 0.5 th/mm3 (0.0-0.9); Mono % (Auto) 6.1 % (0.0-8.0); Neut # (Auto) 4.9 th/mm3 (1.8-7.7); Neut % (Auto) 57.9 % (16.0-70.0); Platelet Count 311 th/mm3 (150-450); Red Blood Count 3.63 mil/mm3 (4.00-5.30); Red Cell Distribution Width 14.4 % (11.6-17.2); White Blood Count 8.5 th/mm3 (4.0-11.0)
[2018-03-27 05:43] LABS: Calcium 8.5 mg/dL (8.5-10.1); Potassium 3.7 meq/L (3.5-5.1)
[2018-03-27] MEDS: Sod Chloride 0.9% Inj 1,000 ML IV.CONT SCH ×2 (06:03→16:29)
--- NOTE | 2018-03-27 06:40 | XR ---
EXAM DATE: 03/27/2018 6:37 AM EST AGE/SEX: 52 years / Female INDICATIONS: Neck, upper back and upper chest pain. CLINICAL DATA: This is the patient's subsequent encounter. Patient reports that signs and symptoms h ave been present for 2 days and indicates a pain score of 10/10. MEDICAL/SURGICAL HISTORY: . fall, cervical spine injury None. COMPARISON: [facility] [place], CHEST 1V SINGLE AP, 01/01/2018. . FINDINGS: A single AP view of the chest demonstrates the lungs to be symmetrically aerated without evidence of mass, infiltrate or effusion. The cardiomediastinal contours are unremarkable. Osseous structures a re intact. CONCLUSION: No acute cardiopulmonary process Electronically signed by: Chino Velarde MD Board Certified Radiologist 03/27/2018 6:39 AM EST
--- NOTE | 2018-03-27 08:01 | P.PN ---
Subjective Interval history: Trauma PTD: 2 Patient sitting up in bed. No distress noted. Patient states, "all along my arms -it hurts." "Now my right arm is swollen, they cannot get any IVs in me." Patient states, "I had a PICC once before, and when they took it out, I had a blood clot." She states this was sometime last summer. Physical Exam Vital signs: Vital Signs 03/26/18 08:36 03/26/18 11:24 03/26/18 15:19 Temperature 99.5 F 99.1 F 99.1 F Pulse Rate 85 96 H 82 Respiratory Rate 16 16 16 Blood Pressure 122/76 150/80 H 134/84 Pulse Oximetry 92 L 92 L 93 L 03/26/18 19:30 03/26/18 23:40 03/27/18 04:20 Temperature 98.6 F 98.6 F 100.1 F H Pulse Rate 94 H 94 H 100 H Respiratory Rate 17 16 17 Blood Pressure 118/64 133/83 120/83 Pulse Oximetry 93 L 93 L 93 L Intake & Output 03/26/18 03/27/18 03/27/18 18:59 06:59 18:59 Intake Total 1532 / 1532 720 / 720 Balance 1532 / 1532 720 / 720 Weight 74.6 kg Intake: IV 1216 / 1216 NS Inj 1,000 ML @ 100 mls/hr IV 1216 / 1216 .CONT .Q10H [facility] Rx#:[id number] Oral 720 / 720 Other 316 / 316 Other: Other Intake Source Saline Solution # Voids 2 2 # Bowel Movements 0 Narrative: GENERAL: This is a 52 year old female sitting up in bed. No distress noted SKIN: Warm and dry. HEAD: Atraumatic. Normocephalic. EYES: PERRLA ENT: No nasal bleeding or discharge. Mucous membranes pink and moist. NECK: Soft cervical collar in place. Trachea midline. No JVD. CARDIOVASCULAR: Regular rate and rhythm. RESPIRATORY: No accessory muscle use. Lungs are clear to auscultation. Breath sounds equal bilaterally. No distress or dyspnea. GASTROINTESTINAL: BS + x 4 quads. Abdomen soft, non-tender, nondistended. MUSCULOSKELETAL: Extremities without cyanosis. Right upper extremity with swelling noted from elbow up to shoulder. Warm to touch. + peripheral pulses x 4 extremities. Warm with good capillary refill. Patient describes not having feeling to her left ring and pinky finger. MAEW. Left lower extremity is weaker than right. Patient also describes not having feeling to her left fourth and fifth toes. NEUROLOGICAL: Awake and alert. Normal speech and pattern. Results - Labs CBC & Chem 7: 03/27/18 04:53 03/27/18 04:53 Laboratory Results - last 24 hr 03/27/18 03/27/18 04:53 04:53 WBC 8.5 RBC 3.63 L Hgb 11.7 Hct 35.5 MCV 97.6 MCH 32.3 MCHC 33.1 RDW 14.4 Plt Count 311 MPV 8.0 Neut % (Auto) 57.9 Lymph % (Auto) 33.6 Bee % (Auto) 6.1 Eos % (Auto) 1.5 Baso % (Auto) 0.9 Neut # (Auto) 4.9 Lymph # (Auto) 2.9 Bee # (Auto) 0.5 Eos # (Auto) 0.1 Baso # (Auto) 0.1 WBC Differential . Differential Comment Auto diff final Sodium 143 Potassium 3.7 Chloride 107 Carbon Dioxide 30.0 Anion Gap 6 BUN 4 L Creatinine 0.83 Estimated GFR 72 L Random Glucose 113 H Calcium 8.5 - Imaging Impressions Chest X-Ray 03/27/18 06:00 CONCLUSION: No acute cardiopulmonary process Assessment and Plan - Assessment (1) Cord compression Code(s): G95.20 - Unspecified cord compression Status: Acute (2) Protrusion of cervical intervertebral disc Code(s): M50.20 - Other cervical disc displacement, unspecified cervical region Status: Acute - Plan [place]: This is a 60-pof-olxq-old female who sustained a mechanical fall. She slipped and fell backwards into a doorway. She hit her head, and mid back. She complained initially of tingling to her hands and weakness to her left lower extremity. GCS 15. INJURIES: C4-C5 mild disc protrusion and impression on anterior cord C5-C6 disc protrusion w/ mild cord compression C6-C7 disc herniations, impingement on the cord (chronic) PMHx: Chronic spinal stenosis. Disc herniations. Ulcerative colitis. Crohn's disease. Procedures: Consults: Neurosurgery. Case management. Diet: Regular diet. Tolerating po diet. Encourage good po intake with each meal. Pulmonary: Encourage good pulmonary toileting. IS at bedside and pt encouraged to use. Rationale for use explained to patient, and verbalized understanding. PAIN Management: Oxycodone 5-10 mg q4h. Dilaudid 0.5 mg q 4h for breakthrough pain. Neurontin 300 mg TID. Activity: OOB. PT and OT ordered. GI prophylaxis: Protonix 40 mg po Bowel regimen: Colace. MOM. Lactulose PRN. LBM: 0 DVT prophylaxis: Mechanical VTE with SCDs. Chemical management with Lovenox 30 mg BID SQ. DC Planning: Case management consulted for assistance with final discharge disposition. Emotional support provided to patient and family at bedside and plan of care discussed. Discussed with RN at bedside. Discussed pt condition and plan of care with collaborating trauma surgeon. Patient is hemodynamically stable and being managed on the med/surg floor. The trauma team will round each day, and evaluate plan of care on a daily basis. C4-C5 mild disc protrusion and impression on anterior cord C5-C6 disc protrusion w/ mild cord compression C6-C7 disc herniations, impingement on the cord (chronic) Neurosurgery consulted and assisting in management and care Waiting for final recommendation from neurosurgeons regarding plan for possible spinal stabilization tomorrow? Supportive care Serial neuro checks Monitor closely Neurosurgery does not feel that steroids are warranted at this time Pain management PT and OT ordered Encourage out of bed -with assist Soft cervical collar in place Bowel regimen Lovenox and SCDs for DVT prophylaxis Right upper extremity swelling IV infiltration vs DVT Patient states her right AC IV site infiltrated - that is when right upper extremity swelling began Obtain ultrasound right upper extremity to rule out DVT Pain management IV catheter has been removed Warm compresses Elevate right upper extremity Access site frequently Continue Lovenox and SCDs for DVT prophylaxis Pre-existing conditions Chronic spinal stenosis Disc herniations. Ulcerative colitis. Crohn's disease. Monitor closely Resume home medications Coreg 3.125 mg BID. Allopurinol. Mesalamine
[2018-03-27] MEDS: Mesalamine 800 MG Tablet DR PO SCH (09:00)
[2018-03-27] MEDS: Gabapentin 300 MG Capsule PO SCH ×3 (09:00→17:31)
[2018-03-27] MEDS: Enoxaparin Inj 30 MG/0.3 ML Syringe SQ SCH ×2 (09:00→20:40)
[2018-03-27] MEDS: Docusate Sodium 100 MG Capsule PO SCH ×2 (09:01→20:40)
[2018-03-27] MEDS: Allopurinol 100 MG Tablet PO SCH (09:01)
--- NOTE | 2018-03-27 11:33 | US ---
EXAM DATE: 03/27/2018 11:26 AM EST AGE/SEX: 52 years / Female INDICATIONS: Right arm pain. CLINICAL DATA: This is the patient's initial encounter. Patient reports that signs and symptoms have been present for 1 day and indicates a pain score of 6/10. MEDICAL/SURGICAL HISTORY: . Crohn's disease. . Cholecystectomy. Appendectomy. Tubal ligation. COMPARISON: No prior exams available for comparison. FINDINGS: The vessels are compressible and augmentation response is documented. No filling defects a re seen. The flow is phasic with respiration. Other: None. CONCLUSION: Normal venous Doppler study of the right upper extremity. Electronically signed by: Titus Phillips MD Board Certified Radiologist 03/27/2018 11:32 AM EST
[2018-03-27] MEDS: Acetaminophen 325 MG Tablet PO PRN ×2 (13:15→20:44)
--- NOTE | 2018-03-27 13:56 | P.PNNS ---
Subjective Interval history: reports no changes overnight, c/o posterior cervical pain from upper cervical down to interscapular region, pain also radiating down her left arm posteromedially following the C7/C8 distribution with weakness in her left arm and tailercpa. denies bowel or bladder dysfunction. <KameronAnalisa - Last Filed: 03/27/18 14:09> Physical Exam Vital signs: Vital Signs 03/26/18 15:19 03/26/18 19:30 03/26/18 23:40 Temperature 99.1 F 98.6 F 98.6 F Pulse Rate 82 94 H 94 H Respiratory Rate 16 17 16 Blood Pressure 134/84 118/64 133/83 Pulse Oximetry 93 L 93 L 93 L 03/27/18 04:20 03/27/18 08:00 03/27/18 12:00 Temperature 100.1 F H 100.5 F H 101 F H Pulse Rate 100 H 96 H 85 Respiratory Rate 17 18 19 Blood Pressure 120/83 105/74 104/63 Pulse Oximetry 93 L 96 92 L Intake & Output 03/26/18 03/27/18 03/27/18 18:59 06:59 18:59 Intake Total 1532 / 1532 720 / 720 1000 / 1000 Balance 1532 / 1532 720 / 720 1000 / 1000 Weight 74.6 kg Intake: IV 1216 / 1216 1000 / 1000 NS Inj 1,000 ML @ 100 mls/hr IV 1216 / 1216 1000 / 1000 .CONT .Q10H [facility] Rx#:[id number] Oral 720 / 720 Other 316 / 316 Other: Other Intake Source Saline Solution # Voids 2 2 # Bowel Movements 0 Narrative: some posterior cervical spine muscle spasm cervical collar in place AAOx3 Speech: fluent CNII-XII: intact Motor: 5/5 Sensory: Decreased LT, decreased PP along Left C6 distribution <KameronAnalisa - Last Filed: 03/27/18 14:09> Vital signs: Vital Signs 03/26/18 23:40 03/27/18 04:20 03/27/18 08:00 Temperature 98.6 F 100.1 F H 100.5 F H Pulse Rate 94 H 100 H 96 H Respiratory Rate 16 17 18 Blood Pressure 133/83 120/83 105/74 Pulse Oximetry 93 L 93 L 96 03/27/18 12:00 03/27/18 14:52 03/27/18 16:00 Temperature 101 F H 99.9 F H 98.5 F Pulse Rate 85 81 Respiratory Rate 19 20 Blood Pressure 104/63 98/54 L Pulse Oximetry 92 L 95 03/27/18 20:05 03/27/18 20:44 03/27/18 22:22 Temperature 100.1 F H Pulse Rate 89 Respiratory Rate 19 18 16 Blood Pressure 135/80 Pulse Oximetry 94 L Intake & Output 03/27/18 03/27/18 03/28/18 06:59 18:59 06:59 Intake Total 720 / 720 1000 / 1000 Balance 720 / 720 1000 / 1000 Weight 74.6 kg Intake: IV 1000 / 1000 NS Inj 1,000 ML @ 100 mls/hr IV 1000 / 1000 .CONT .Q10H [facility] Rx#:[id number] Oral 720 / 720 Other: # Voids 2 4 Date of Last Bowel Movement 03/26/18 # Bowel Movements 0 <Luis Morales - Last Filed: 03/27/18 23:05> Assessment and Plan - Plan 54 yo female with multi-level cervical disease,with progressive neck pain and left upper extremity radiculopathy s/p fall. GCS-15 Acute on chronic disc disease would admit for pain control Neuro checks q 4hrs soft cervical collar for comfort No indications for steroid therapy Will follow 03/27/2018 continues to complain of left C7/C8 radicular pain MRI Cervical spine was again reviewed by neurosurgery team she has multilevel spondylosis causing NF stenosis no significant cord compression, EMG/NCV of upper extremities with Dr. Celaya to better assess continue supportive care will follow <Analisa Melo - Last Filed: 03/27/18 14:09> - Attending Attestation I have personally seen and examined the patient, reviewed pertinent labs and imaging studies with the Neurosurgery team. I agree with Ms. Melo's ( Neurosurgery PA), assessment as well as plan of care. <Luis Morales - Last Filed: 03/27/18 23:05>
[2018-03-28] MEDS: HYDROmorphone PF Inj 0.5 MG/0.5 ML Syringe IV.PUSH PRN ×5 (00:25→21:00)
[2018-03-28] MEDS: Sod Chloride 0.9% Inj 1,000 ML IV.CONT SCH ×3 (00:42→22:55)
[2018-03-28] MEDS: Acetaminophen 325 MG Tablet PO PRN ×2 (04:47→08:49)
[2018-03-28 04:59] LABS: Baso # (Auto) 0.1 th/mm3 (0.0-0.2); Baso % (Auto) 0.7 % (0.0-2.0); Eos # (Auto) 0.2 th/mm3 (0.0-0.4); Eos % (Auto) 1.8 % (0.0-4.0); Hematocrit 33.3 % (35.0-46.0); Hemoglobin 11.4 gm/dL (11.6-15.3); Lymph # (Auto) 2.8 th/mm3 (1.0-4.8); Lymph % (Auto) 33.6 % (9.0-44.0); Mean Corpuscular HGB Conc 34.3 % (32.0-36.0); Mean Corpuscular Hemoglobin 33.4 pg (27.0-34.0); Mean Corpuscular Volume 97.3 fL (80.0-100.0); Mean Platelet Volume 7.9 fL (7.0-11.0); Mono # (Auto) 0.6 th/mm3 (0.0-0.9); Mono % (Auto) 6.7 % (0.0-8.0); Neut # (Auto) 4.8 th/mm3 (1.8-7.7); Neut % (Auto) 57.2 % (16.0-70.0); Platelet Count 245 th/mm3 (150-450); Red Blood Count 3.42 mil/mm3 (4.00-5.30); Red Cell Distribution Width 14.1 % (11.6-17.2); White Blood Count 8.4 th/mm3 (4.0-11.0)
[2018-03-28] MEDS: Enoxaparin Inj 30 MG/0.3 ML Syringe SQ SCH ×2 (08:48→20:58)
[2018-03-28] MEDS: Allopurinol 100 MG Tablet PO SCH (08:48)
[2018-03-28] MEDS: Mesalamine 800 MG Tablet DR PO SCH (08:48)
[2018-03-28] MEDS: Gabapentin 300 MG Capsule PO SCH ×3 (08:49→18:21)
[2018-03-28] MEDS: Docusate Sodium 100 MG Capsule PO SCH ×2 (08:50→21:02)
--- NOTE | 2018-03-28 10:50 | P.PNNS ---
Subjective Interval history: no changes in symptoms, unable to complete EMG test this morning due to increased pain <Analisa Melo - Last Filed: 03/28/18 12:02> Physical Exam Vital signs: Vital Signs 03/27/18 12:00 03/27/18 14:52 03/27/18 16:00 Temperature 101 F H 99.9 F H 98.5 F Pulse Rate 85 81 Respiratory Rate 19 20 Blood Pressure 104/63 98/54 L Pulse Oximetry 92 L 95 03/27/18 20:05 03/27/18 20:44 03/27/18 22:22 Temperature 100.1 F H Pulse Rate 89 Respiratory Rate 19 18 16 Blood Pressure 135/80 Pulse Oximetry 94 L 03/28/18 00:09 03/28/18 00:43 03/28/18 03:39 Temperature 99.0 F Pulse Rate 85 Respiratory Rate 18 18 16 Blood Pressure 122/81 Pulse Oximetry 98 03/28/18 04:00 03/28/18 06:17 03/28/18 08:00 Temperature 99.7 F H 99.1 F Pulse Rate 81 Respiratory Rate 18 20 Blood Pressure 142/80 H Pulse Oximetry 95 03/28/18 09:35 Temperature Pulse Rate Respiratory Rate Blood Pressure Pulse Oximetry 98 Intake & Output 03/27/18 03/28/18 03/28/18 18:59 06:59 18:59 Intake Total 1000 / 1000 840 / 840 Balance 1000 / 1000 840 / 840 Weight 77.2 kg Intake: IV 1000 / 1000 NS Inj 1,000 ML @ 100 mls/hr IV 1000 / 1000 .CONT .Q10H [facility] Rx#:[id number] Oral 840 / 840 Other: # Voids 4 5 Date of Last Bowel Movement 03/26/18 # Bowel Movements 0 Narrative: some posterior cervical spine muscle spasm cervical collar in place AAOx3 Speech: fluent CNII-XII: intact Motor: 5/5 Sensory: Decreased LT, decreased PP along Left C6 distribution <Analisa Melo - Last Filed: 03/28/18 12:02> Vital signs: Vital Signs 03/27/18 14:52 03/27/18 16:00 03/27/18 20:05 Temperature 99.9 F H 98.5 F Pulse Rate 81 Respiratory Rate 20 19 Blood Pressure 98/54 L Pulse Oximetry 95 03/27/18 20:44 02/18/19 22:22 03/28/18 00:09 Temperature 100.1 F H 99.0 F Pulse Rate 89 85 Respiratory Rate 18 16 18 Blood Pressure 135/80 122/81 Pulse Oximetry 94 L 98 03/28/18 00:43 03/28/18 03:39 03/28/18 04:00 Temperature 99.7 F H Pulse Rate Respiratory Rate 18 16 Blood Pressure Pulse Oximetry 03/28/18 06:17 03/28/18 08:00 03/28/18 09:35 Temperature 99.1 F Pulse Rate 81 Respiratory Rate 18 20 Blood Pressure 142/80 H Pulse Oximetry 95 98 Intake & Output 03/27/18 03/28/18 03/28/18 18:59 06:59 18:59 Intake Total 1000 / 1000 840 / 840 Balance 1000 / 1000 840 / 840 Weight 77.2 kg Intake: IV 1000 / 1000 NS Inj 1,000 ML @ 100 mls/hr IV 1000 / 1000 .CONT .Q10H [facility] Rx#:[id number] Oral 840 / 840 Other: # Voids 4 5 Date of Last Bowel Movement 03/26/18 # Bowel Movements 0 <Luis Morales - Last Filed: 03/28/18 12:34> Assessment and Plan - Plan 54 yo female with multi-level cervical disease,with progressive neck pain and left upper extremity radiculopathy s/p fall. GCS-15 Acute on chronic disc disease would admit for pain control Neuro checks q 4hrs soft cervical collar for comfort No indications for steroid therapy Will follow 03/27/2018 continues to complain of left C7/C8 radicular pain MRI Cervical spine was again reviewed by neurosurgery team she has multilevel spondylosis causing NF stenosis no significant cord compression, EMG/NCV of upper extremities with Dr. Celaya to better assess continue supportive care will follow 03/28/2018 patient unable to complete EMG testing with Dr. Celaya this morning due to pain intolerance patient tentatively scheduled this Tuesday for ACDF EMG to be reattempted tomorrow will follow <Analisa Melo - Last Filed: 03/28/18 12:02> - Attending Attestation Remains Neurologically stable Awaits EMG/NCS I have personally seen and examined the patient, reviewed pertinent labs and imaging studies with the Neurosurgery team. I agree with Ms. Melo's ( Neurosurgery PA), assessment as well as plan of care. <Luis Morales - Last Filed: 03/28/18 12:34>
--- NOTE | 2018-03-28 11:17 | P.PN ---
Subjective Interval history: TRAUMA PTD: 3 Patient sitting up in bed. No distress noted. Discussed EMG testing. Patient states, "it was so painful, I felt it all the way into my back." Patient has many questions regarding her possibility of upcoming surgery. I will contact KELSEY Hauser for neurosurgery to see if she will be free to talk with her. Physical Exam Vital signs: Vital Signs 03/27/18 12:00 03/27/18 14:52 03/27/18 16:00 Temperature 101 F H 99.9 F H 98.5 F Pulse Rate 85 81 Respiratory Rate 19 20 Blood Pressure 104/63 98/54 L Pulse Oximetry 92 L 95 03/27/18 20:05 03/27/18 20:44 03/27/18 22:22 Temperature 100.1 F H Pulse Rate 89 Respiratory Rate 19 18 16 Blood Pressure 135/80 Pulse Oximetry 94 L 03/28/18 00:09 03/28/18 00:43 03/28/18 03:39 Temperature 99.0 F Pulse Rate 85 Respiratory Rate 18 18 16 Blood Pressure 122/81 Pulse Oximetry 98 03/28/18 04:00 03/28/18 06:17 03/28/18 08:00 Temperature 99.7 F H 99.1 F Pulse Rate 81 Respiratory Rate 18 20 Blood Pressure 142/80 H Pulse Oximetry 95 03/28/18 09:35 Temperature Pulse Rate Respiratory Rate Blood Pressure Pulse Oximetry 98 Intake & Output 03/27/18 03/28/18 03/28/18 18:59 06:59 18:59 Intake Total 1000 / 1000 840 / 840 Balance 1000 / 1000 840 / 840 Weight 77.2 kg Intake: IV 1000 / 1000 NS Inj 1,000 ML @ 100 mls/hr IV 1000 / 1000 .CONT .Q10H [facility] Rx#:[id number] Oral 840 / 840 Other: # Voids 4 5 Date of Last Bowel Movement 03/26/18 # Bowel Movements 0 Narrative: GENERAL: This is a 52 year old female sitting up in bed. No distress noted SKIN: Warm and dry. HEAD: Atraumatic. Normocephalic. EYES: PERRLA ENT: No nasal bleeding or discharge. Mucous membranes pink and moist. NECK: Soft cervical collar in place. Trachea midline. No JVD. CARDIOVASCULAR: Regular rate and rhythm. RESPIRATORY: No accessory muscle use. Lungs are clear to auscultation. Breath sounds equal bilaterally. No distress or dyspnea. GASTROINTESTINAL: BS + x 4 quads. Abdomen soft, non-tender, nondistended. MUSCULOSKELETAL: Extremities without cyanosis. Right upper extremity with decreased swelling noted from elbow up to shoulder. Warm to touch. + peripheral pulses x 4 extremities. Warm with good capillary refill. NEUROLOGICAL: Awake and alert. Normal speech and pattern. Results - Labs CBC & Chem 7: 03/28/18 04:33 03/27/18 04:53 Laboratory Results - last 24 hr 03/28/18 04:33 WBC 8.4 RBC 3.42 L Hgb 11.4 L Hct 33.3 L MCV 97.3 MCH 33.4 MCHC 34.3 RDW 14.1 Plt Count 245 MPV 7.9 Neut % (Auto) 57.2 Lymph % (Auto) 33.6 [place] % (Auto) 6.7 Eos % (Auto) 1.8 Baso % (Auto) 0.7 Neut # (Auto) 4.8 Lymph # (Auto) 2.8 [place] # (Auto) 0.6 Eos # (Auto) 0.2 Baso # (Auto) 0.1 WBC Differential . Differential Comment Auto diff final - Imaging Impressions Venous Doppler Study 03/27/18 00:00 CONCLUSION: Normal venous Doppler study of the right upper extremity. Assessment and Plan - Assessment (1) Cord compression Code(s): G95.20 - Unspecified cord compression Status: Acute (2) Protrusion of cervical intervertebral disc Code(s): M50.20 - Other cervical disc displacement, unspecified cervical region Status: Acute - Plan [place]: This is a [id number]-old female who sustained a mechanical fall. She slipped and fell backwards into a doorway. She hit her head, and mid back. She complained initially of tingling to her hands and weakness to her left lower extremity. GCS 15. INJURIES: C4-C5 mild disc protrusion and impression on anterior cord C5-C6 disc protrusion w/ mild cord compression C6-C7 disc herniations, impingement on the cord (chronic) PMHx: Chronic spinal stenosis. Disc herniations. Ulcerative colitis. Crohn's disease. Procedures: Consults: Neurosurgery. Case management. Diet: Regular diet. Tolerating po diet. Encourage good po intake with each meal. Pulmonary: Encourage good pulmonary toileting. IS at bedside and pt encouraged to use. Rationale for use explained to patient, and verbalized understanding. PAIN Management: Oxycodone 5-10 mg q4h. Dilaudid 0.5 mg q 4h for breakthrough pain. Neurontin 300 mg TID. Activity: OOB. PT and OT ordered. GI prophylaxis: Protonix 40 mg po Bowel regimen: Colace. MOM. Lactulose. LBM: 0 DVT prophylaxis: Mechanical VTE with SCDs. Chemical management with Lovenox 30 mg BID SQ. DC Planning: Case management consulted for assistance with final discharge disposition. Emotional support provided to patient and family at bedside and plan of care discussed. Discussed with RN at bedside. Discussed pt condition and plan of care with collaborating trauma surgeon. Patient is hemodynamically stable and being managed on the med/surg floor. The trauma team will round each day, and evaluate plan of care on a daily basis. C4-C5 mild disc protrusion and impression on anterior cord C5-C6 disc protrusion w/ mild cord compression C6-C7 disc herniations, impingement on the cord (chronic) Neurosurgery consulted and assisting in management and care Waiting for final recommendation from neurosurgeons regarding plan for possible spinal stabilization tomorrow EMG study w/ Dr. Celaya - pt was unable to complete study due to pain Tentative plan for surgery on Tuesday (03/31) Supportive care Serial neuro checks Monitor closely Neurosurgery does not feel that steroids are warranted at this time Pain management PT and OT ordered Encourage out of bed -with assist Soft cervical collar in place Bowel regimen Lovenox and SCDs for DVT prophylaxis Right upper extremity swelling IV infiltration vs DVT Patient states her right AC IV site infiltrated - that is when right upper extremity swelling began 03/27: Ultrasound right upper extremity = NEG for DVT Pain management IV catheter has been removed Warm compresses Elevate right upper extremity Access site frequently Continue Lovenox and SCDs for DVT prophylaxis Pre-existing conditions Chronic spinal stenosis Disc herniations. Ulcerative colitis. Crohn's disease. Monitor closely Resume home medications Coreg 3.125 mg BID. Allopurinol. Mesalamine
[2018-03-28 17:50] LABS: Bilirubin,Urine Negative (Negative); Clarity,Urine Clear (Clear); Color,Urine Yellow (Yellw/Straw); Glucose,Urine (UA) Negative (Negative); Leukocyte Esterase,Urine Negative (Negative); Nitrite,Urine Negative (Negative); Specific Gravity,Urine 1.006 (1.002-1.035); Squamous Epithelial Cell,Urine 1 /hpf (0-5)
[2018-03-29] MEDS: HYDROmorphone PF Inj 0.5 MG/0.5 ML Syringe IV.PUSH PRN ×5 (02:35→20:22)
[2018-03-29] MEDS: Sod Chloride 0.9% Inj 1,000 ML IV.CONT SCH ×2 (07:23→17:48)
--- NOTE | 2018-03-29 07:44 | P.PN ---
Subjective Interval history: Trauma PTD: 4 Patient sitting on the side of the bed. No distress noted. "I am trying to get some exercise." "The pain is still there, but I just had to get out of this bed." Patient is nervous and concerned over her upcoming surgery. Patient noted ambulating later in the hallways with a walker, without incident. Physical Exam Vital signs: Vital Signs 03/28/18 08:00 03/28/18 09:35 03/28/18 12:00 Temperature 99.1 F 98 F Pulse Rate 81 76 Respiratory Rate 20 20 Blood Pressure 142/80 H 110/64 Pulse Oximetry 95 98 95 03/28/18 16:00 03/28/18 21:05 03/28/18 22:05 Temperature 99.2 F 99.0 F Pulse Rate 79 77 81 Respiratory Rate 20 18 Blood Pressure 105/65 98/58 L 101/56 L Pulse Oximetry 95 98 03/29/18 00:20 03/29/18 04:30 Temperature 98.4 F 98.7 F Pulse Rate 76 83 Respiratory Rate 18 17 Blood Pressure 101/62 101/63 Pulse Oximetry 93 L 94 L Intake & Output 03/28/18 03/29/18 03/29/18 18:59 06:59 18:59 Intake Total 750 / 750 Balance 750 / 750 Weight 77.2 kg Intake: Oral 750 / 750 Other: # Voids 3 Date of Last Bowel Movement 03/29/18 # Bowel Movements 1 1 Narrative: GENERAL: This is a 52 year old female sitting up in bed. No distress noted SKIN: Warm and dry. HEAD: Atraumatic. Normocephalic. EYES: PERRLA ENT: No nasal bleeding or discharge. Mucous membranes pink and moist. NECK: Soft cervical collar in place. Trachea midline. No JVD. CARDIOVASCULAR: Regular rate and rhythm. RESPIRATORY: No accessory muscle use. Lungs are clear to auscultation. Breath sounds equal bilaterally. No distress or dyspnea. GASTROINTESTINAL: BS + x 4 quads. Abdomen soft, non-tender, nondistended. MUSCULOSKELETAL: Extremities without cyanosis. Right upper extremity with decreased swelling noted from elbow up to shoulder. Warm to touch. + peripheral pulses x 4 extremities. Warm with good capillary refill. NEUROLOGICAL: Awake and alert. Normal speech and pattern. Results - Labs CBC & Chem 7: 03/28/18 04:33 03/27/18 04:53 Laboratory Results - last 24 hr 03/28/18 17:25 Urine Color Yellow Urine Clarity Clear Urine pH 6.0 Ur Specific [place] 1.006 Urine Protein Negative Urine Glucose (UA) Negative Urine Ketones Negative Urine Occult Blood Moderate H Urine Nitrate Negative Urine Bilirubin Negative Urine Urobilinogen Less than 2 Ur Leukocyte Esterase Negative Urine RBC 1 Urine WBC 1 Ur Squamous Epith Cells 1 Micro UA Comment Culture not ind Ur Microscopic Review Not Reportable Urine Culture Comments Culture not ind Assessment and Plan - Assessment (1) Cord compression Code(s): G95.20 - Unspecified cord compression Status: Acute (2) Protrusion of cervical intervertebral disc Code(s): M50.20 - Other cervical disc displacement, unspecified cervical region Status: Acute - Plan [place]: This is a 89-[id number]-old female who sustained a mechanical fall. She slipped and fell backwards into a doorway. She hit her head, and mid back. She complained initially of tingling to her hands and weakness to her left lower extremity. GCS 15. INJURIES: C4-C5 mild disc protrusion and impression on anterior cord C5-C6 disc protrusion w/ mild cord compression C6-C7 disc herniations, impingement on the cord (chronic) PMHx: Chronic spinal stenosis. Disc herniations. Ulcerative colitis. Crohn's disease. Procedures: Consults: Neurosurgery. Case management. Diet: Regular diet. Tolerating po diet. Encourage good po intake with each meal. Pulmonary: Encourage good pulmonary toileting. IS at bedside and pt encouraged to use. Rationale for use explained to patient, and verbalized understanding. PAIN Management: Oxycodone 5-10 mg q4h. Dilaudid 0.5 mg q 4h for breakthrough pain. Neurontin 600 mg TID. Activity: OOB. PT and OT ordered. GI prophylaxis: Protonix 40 mg po Bowel regimen: Colace. MOM. Lactulose PRN. LBM: 03/29. DVT prophylaxis: Mechanical VTE with SCDs. Chemical management with Lovenox 30 mg BID SQ. DC Planning: Case management consulted for assistance with final discharge disposition. Emotional support provided to patient and family at bedside and plan of care discussed. Discussed with RN at bedside. Discussed pt condition and plan of care with collaborating trauma surgeon. Patient is hemodynamically stable and being managed on the med/surg floor. The trauma team will round each day, and evaluate plan of care on a daily basis. C4-C5 mild disc protrusion and impression on anterior cord C5-C6 disc protrusion w/ mild cord compression C6-C7 disc herniations, impingement on the cord (chronic) Neurosurgery consulted and assisting in management and care Waiting for final recommendation from neurosurgeons regarding plan for possible spinal stabilization tomorrow 03/28: EMG study w/ Dr. Celaya - pt was unable to complete study due to pain Tentative plan for surgery on Tuesday (03/31) Supportive care Serial neuro checks Monitor closely Neurosurgery does not feel that steroids are warranted at this time Pain management PT and OT ordered Encourage out of bed -with assist Soft cervical collar in place Bowel regimen Lovenox and SCDs for DVT prophylaxis Right upper extremity swelling IV infiltration vs DVT Patient states her right AC IV site infiltrated - that is when right upper extremity swelling began 03/27: Ultrasound right upper extremity = NEG for DVT Pain management IV catheter has been removed Warm compresses Elevate right upper extremity Access site frequently Continue Lovenox and SCDs for DVT prophylaxis Pre-existing conditions Chronic spinal stenosis Disc herniations. Ulcerative colitis. Crohn's disease. Monitor closely Resume home medications Coreg 3.125 mg BID. Allopurinol. Mesalamine
[2018-03-29] MEDS ORDERED: diazePAM 5 MG Tablet PO ONE (09:19)
--- NOTE | 2018-03-29 10:25 | P.PNNS ---
Subjective Interval history: anxious about repeating EMG today, otherwise no changes in neurological complaints <Analisa Melo - Last Filed: 03/29/18 10:21> Physical Exam Vital signs: Vital Signs 03/28/18 12:00 03/28/18 16:00 03/28/18 21:05 Temperature 98 F 99.2 F 99.0 F Pulse Rate 76 79 77 Respiratory Rate 20 20 18 Blood Pressure 110/64 105/65 98/58 L Pulse Oximetry 95 95 98 03/28/18 22:05 03/29/18 00:20 03/29/18 04:30 Temperature 98.4 F 98.7 F Pulse Rate 81 76 83 Respiratory Rate 18 17 Blood Pressure 101/56 L 101/62 101/63 Pulse Oximetry 93 L 94 L 03/29/18 08:00 Temperature 99.4 F Pulse Rate 75 Respiratory Rate 16 Blood Pressure 101/58 L Pulse Oximetry 95 Intake & Output 03/28/18 03/29/18 03/29/18 18:59 06:59 18:59 Intake Total 750 / 750 Balance 750 / 750 Weight 77.2 kg Intake: Oral 750 / 750 Other: # Voids 3 Date of Last Bowel Movement 03/29/18 # Bowel Movements 1 1 Narrative: some posterior cervical spine muscle spasm cervical collar in place AAOx3 Speech: fluent CNII-XII: intact Motor: 5/5 Sensory: Decreased LT, decreased PP along Left C6 distribution <Analisa Melo - Last Filed: 03/29/18 10:21> Vital signs: Vital Signs 03/28/18 21:05 03/28/18 22:05 03/29/18 00:20 Temperature 99.0 F 98.4 F Pulse Rate 77 81 76 Respiratory Rate 18 18 Blood Pressure 98/58 L 101/56 L 101/62 Pulse Oximetry 98 93 L 03/29/18 04:30 03/29/18 07:25 03/29/18 08:00 Temperature 98.7 F 99.4 F Pulse Rate 83 75 Respiratory Rate 17 18 16 Blood Pressure 101/63 101/58 L Pulse Oximetry 94 L 95 03/29/18 09:47 03/29/18 10:38 03/29/18 11:25 Temperature Pulse Rate Respiratory Rate 18 16 Blood Pressure Pulse Oximetry 96 03/29/18 12:00 03/29/18 14:07 03/29/18 16:00 Temperature 98.4 F 98.4 F Pulse Rate 79 77 Respiratory Rate 17 16 14 Blood Pressure 106/55 L 108/67 Pulse Oximetry 99 03/29/18 16:21 Temperature Pulse Rate Respiratory Rate 16 Blood Pressure Pulse Oximetry Intake & Output 03/28/18 03/29/18 03/29/18 18:59 06:59 18:59 Intake Total 750 / 750 0 / 0 Balance 750 / 750 0 / 0 Weight 77.2 kg Intake: IV 0 / 0 NS Inj 1,000 ML @ 100 mls/hr IV 0 / 0 .CONT .Q10H [facility] Rx#:[id number] Oral 750 / 750 Other: # Voids 3 Date of Last Bowel Movement 03/29/18 # Bowel Movements 1 1 <Luis Morales - Last Filed: 03/29/18 17:51> Assessment and Plan - Plan 54 yo female with multi-level cervical disease,with progressive neck pain and left upper extremity radiculopathy s/p fall. GCS-15 Acute on chronic disc disease would admit for pain control Neuro checks q 4hrs soft cervical collar for comfort No indications for steroid therapy Will follow 03/27/2018 continues to complain of left C7/C8 radicular pain MRI Cervical spine was again reviewed by neurosurgery team she has multilevel spondylosis causing NF stenosis no significant cord compression, EMG/NCV of upper extremities with Dr. Celaya to better assess continue supportive care will follow 03/28/2018 patient unable to complete EMG testing with Dr. Celaya this morning due to pain intolerance patient tentatively scheduled this Tuesday for ACDF EMG to be reattempted tomorrow will follow 03/29/18 repeat EMG/NCV this morning, provide valium prior to exam follow up EMG result Neurosurgery team has again discussed with the patient regarding surgery and answered all questions and concerns will follow <Analisa Melo - Last Filed: 03/29/18 10:21> - Attending Attestation Awaits EMG I have personally seen and examined the patient, reviewed pertinent labs and imaging studies with the Neurosurgery team. I agree with Ms. Melo's ( Neurosurgery PA), assessment as well as plan of care. <Luis Morales - Last Filed: 03/29/18 17:51>
[2018-03-29] MEDS: Enoxaparin Inj 30 MG/0.3 ML Syringe SQ SCH ×2 (10:27→20:22)
[2018-03-29] MEDS: Allopurinol 100 MG Tablet PO SCH (10:28)
[2018-03-29] MEDS: Mesalamine 800 MG Tablet DR PO SCH (10:28)
[2018-03-29] MEDS: Gabapentin 300 MG Capsule PO SCH ×3 (10:28→17:40)
[2018-03-29] MEDS: Docusate Sodium 100 MG Capsule PO SCH ×2 (10:29→20:23)
--- NOTE | 2018-03-29 19:34 | P.CONREH ---
History of Present Illness Primary Care Provider: No Primary Care Physician [facility] History History Provided By: Patient Medical History Medical History Bulging disc (Acute) Chronic ulcerative colitis (Acute) Crohns disease (Acute) FHx: cholecystectomy (Acute) Spinal stenosis (Acute) Surgical History Surgical History History of appendectomy (Acute) Tobacco History Second Hand Smoke Exposure: No Smoking Status: Former smoker Alcohol History How Often Do You Have a Drink Containing Alcohol: Never Substance Use History Substance History: No History of Abuse Travel History Recent Travel in the [place] Within the Last 8 Weeks: No Recent Travel Out of the Country Within the Last 8 Weeks: No Immunization History Tetanus Immunization: Unsure Hx Influenza Vaccine This Season: No Medications and Allergies Allergies Allergy/AdvReac Type Severity Reaction Status Date / Time piperacillin [From Zosyn] Allergy Anaphylaxis Verified 03/25/18 16:11 Sulfa (Sulfonamide Allergy Anaphylaxis Verified 03/25/18 16:11 Antibiotics) tazobactam [From Zosyn] Allergy Anaphylaxis Verified 03/25/18 16:11 Home Medications Medication Instructions Recorded Confirmed Type allopurinol 100 mg PO DAILY 03/25/18 03/25/18 History carvedilol 3.125 mg PO BID 03/25/18 03/25/18 History clonazepam 0.5 mg PO TID 03/25/18 03/25/18 History mesalamine 400 mg PO QID 03/25/18 03/25/18 History pantoprazole [Protonix] 40 mg PO DAILY 03/25/18 03/25/18 History Active Medications: Active Medications Acetaminophen (Tylenol) 650 mg PO Q4H PRN PRN Reason: PAIN 1-10 AND/OR FEVER >101F Last Admin: 03/28/18 08:49 Dose: 650 mg Al Hydroxide/Mg Hydroxide (Milk Of Magnesia Liq) 30 ml PO BID [facility] Last Admin: 03/29/18 10:28 Dose: Not Given Allopurinol (Zyloprim) 100 mg PO DAILY [facility] Last Admin: 03/29/18 10:28 Dose: 100 mg Bacitracin (Baciguent Oint) 1 applicatio TOPICAL BID [facility] Last Admin: 03/29/18 13:40 Dose: 1 applicatio Carvedilol (Coreg) 3.125 mg PO BID [facility] Last Admin: 03/29/18 10:28 Dose: 3.125 mg Docusate Sodium (Colace) 100 mg PO BID [facility] Last Admin: 03/29/18 10:29 Dose: Not Given Enalaprilat (Vasotec Inj) 1.25 mg IV.PUSH Q8H PRN PRN Reason: SBP>180, DBP>95 Enoxaparin Sodium (Lovenox Inj) 30 mg SQ Q12HR [facility] Last Admin: 03/29/18 10:27 Dose: 30 mg Gabapentin (Neurontin) 600 mg PO TID [facility] Last Admin: 03/29/18 17:40 Dose: 600 mg Hydromorphone HCl (Dilaudid Pf Inj) 0.5 mg IV.PUSH Q4H PRN PRN Reason: BREAKTHROUGH PAIN Last Admin: 03/29/18 15:51 Dose: 0.5 mg Sodium Chloride (Ns Inj) 1,000 mls @ 100 mls/hr IV.CONT .Q10H [facility] Last Admin: 03/29/18 17:48 Dose: Not Given Lactulose (Lactulose Liq) 30 ml PO DAILY PRN PRN Reason: CONSTIPATION Mesalamine (Asacol Hd Dr) 800 mg PO DAILY [facility] Last Admin: 03/29/18 10:28 Dose: 800 mg Ondansetron HCl (Zofran Inj) 4 mg IV.PUSH Q6H PRN PRN Reason: NAUSEA OR VOMITING Last Admin: 03/29/18 11:44 Dose: 4 mg Oxycodone HCl (Roxicodone) 10 mg PO Q4H PRN PRN Reason: Pain 6-10 Last Admin: 03/29/18 17:41 Dose: 10 mg Oxycodone HCl (Roxicodone) 5 mg PO Q4H PRN PRN Reason: Acute Pain Pantoprazole Sodium (Protonix) 40 mg PO DAILY [facility] Last Admin: 03/29/18 10:28 Dose: 40 mg Sodium Chloride (Ns Flush) 2 ml IV.FLUSH UNSCH PRN PRN Reason: FLUSH AFTER USING IV ACCESS Last Admin: 03/27/18 10:28 Dose: 2 ml Exam Physical Examination Vital Signs / I&O: Vital Signs 03/28/18 21:05 03/28/18 22:05 03/29/18 00:20 Temperature 99.0 F 98.4 F Pulse Rate 77 81 76 Respiratory Rate 18 18 Blood Pressure 98/58 L 101/56 L 101/62 Pulse Oximetry 98 93 L 03/29/18 04:30 03/29/18 07:25 03/29/18 08:00 Temperature 98.7 F 99.4 F Pulse Rate 83 75 Respiratory Rate 17 18 16 Blood Pressure 101/63 101/58 L Pulse Oximetry 94 L 95 03/29/18 09:47 03/29/18 10:38 03/29/18 11:25 Temperature Pulse Rate Respiratory Rate 18 16 Blood Pressure Pulse Oximetry 96 03/29/18 12:00 03/29/18 14:07 03/29/18 16:00 Temperature 98.4 F 98.4 F Pulse Rate 79 77 Respiratory Rate 17 16 14 Blood Pressure 106/55 L 108/67 Pulse Oximetry 99 03/29/18 16:21 03/29/18 18:14 Temperature Pulse Rate Respiratory Rate 16 16 Blood Pressure Pulse Oximetry Intake & Output 03/29/18 03/29/18 03/30/18 06:59 18:59 06:59 Intake Total 750 / 750 0 / 0 Balance 750 / 750 0 / 0 Weight 77.2 kg Intake: IV 0 / 0 NS Inj 1,000 ML @ 100 mls/hr IV 0 / 0 .CONT .Q10H [facility] Rx#:[id number] Oral 750 / 750 Other: # Voids 3 Date of Last Bowel Movement 03/29/18 # Bowel Movements 1 Intake & Output 03/27/18 03/28/18 03/29/18 03/30/18 06:59 06:59 06:59 06:59 Intake Total 2252 / 2252 1840 / 1840 750 / 750 0 / 0 Balance 2252 / 2252 1840 / 1840 750 / 750 0 / 0 Weight 74.6 kg 77.2 kg 77.2 kg Date of Last Bowel Movement: 03/29/18 Results Labs CBC & Chem 7: 03/28/18 04:33 03/27/18 04:53 Assessment and Plan (1) Cord compression: Status: Acute Code(s): G95.20 - Unspecified cord compression (2) Protrusion of cervical intervertebral disc: Status: Acute Code(s): M50.20 - Other cervical disc displacement, unspecified cervical region
[2018-03-30] MEDS: HYDROmorphone PF Inj 0.5 MG/0.5 ML Syringe IV.PUSH PRN ×5 (01:25→20:16)
[2018-03-30] MEDS: Sod Chloride 0.9% Inj 1,000 ML IV.CONT SCH ×2 (05:14→13:55)
[2018-03-30] MEDS: Allopurinol 100 MG Tablet PO SCH (09:51)
[2018-03-30] MEDS: Enoxaparin Inj 30 MG/0.3 ML Syringe SQ SCH (09:51)
[2018-03-30] MEDS: Mesalamine 800 MG Tablet DR PO SCH (09:52)
[2018-03-30] MEDS: Gabapentin 300 MG Capsule PO SCH ×3 (09:52→17:37)
[2018-03-30] MEDS: Docusate Sodium 100 MG Capsule PO SCH (10:02)
--- NOTE | 2018-03-30 11:02 | P.PN ---
Subjective Interval history: Trauma PTD: 5 Patient sitting up in bed. No distress noted. Patient is nervous regarding surgery tomorrow. Patient appears to be in good spirits, making jokes with trauma team. Physical Exam Vital signs: Vital Signs 03/29/18 11:25 03/29/18 12:00 03/29/18 14:07 Temperature 98.4 F Pulse Rate 79 Respiratory Rate 16 17 16 Blood Pressure 106/55 L Pulse Oximetry 99 03/29/18 16:00 03/29/18 16:21 03/29/18 18:14 Temperature 98.4 F Pulse Rate 77 Respiratory Rate 14 16 16 Blood Pressure 108/67 Pulse Oximetry 03/29/18 21:57 03/29/18 22:45 03/30/18 01:20 Temperature 98.4 F 98.1 F Pulse Rate 84 80 Respiratory Rate 18 17 Blood Pressure 108/60 108/68 Pulse Oximetry 96 97 96 03/30/18 05:25 03/30/18 08:00 Temperature 98.1 F 98.6 F Pulse Rate 90 77 Respiratory Rate 17 18 Blood Pressure 103/55 L 97/57 L Pulse Oximetry 93 L 94 L Intake & Output 03/29/18 03/30/18 03/30/18 18:59 06:59 18:59 Intake Total 0 / 0 900 / 900 Balance 0 / 0 900 / 900 Weight 77.2 kg Intake: IV 0 / 0 NS Inj 1,000 ML @ 100 mls/hr IV 0 / 0 .CONT .Q10H [facility] Rx#:[id number] Oral 900 / 900 Other: # Voids 2 Date of Last Bowel Movement 03/29/18 # Bowel Movements 0 Narrative: GENERAL: This is a 52 year old female sitting up in bed. No distress noted SKIN: Warm and dry. HEAD: Atraumatic. Normocephalic. EYES: PERRLA ENT: No nasal bleeding or discharge. Mucous membranes pink and moist. NECK: Soft cervical collar in place. Trachea midline. No JVD. CARDIOVASCULAR: Regular rate and rhythm. RESPIRATORY: No accessory muscle use. Lungs are clear to auscultation. Breath sounds equal bilaterally. No distress or dyspnea. GASTROINTESTINAL: BS + x 4 quads. Abdomen soft, non-tender, nondistended. MUSCULOSKELETAL: Extremities without cyanosis. + peripheral pulses x 4 extremities. Warm with good capillary refill. NEUROLOGICAL: Awake and alert. Normal speech and pattern Results - Labs CBC & Chem 7: 03/28/18 04:33 03/27/18 04:53 Assessment and Plan - Assessment (1) Cord compression Code(s): G95.20 - Unspecified cord compression Status: Acute (2) Protrusion of cervical intervertebral disc Code(s): M50.20 - Other cervical disc displacement, unspecified cervical region Status: Acute - Plan [id number]: This is a 67-yjp-xieu-old female who sustained a mechanical fall. She slipped and fell backwards into a doorway. She hit her head, and mid back. She complained initially of tingling to her hands and weakness to her left lower extremity. GCS 15. INJURIES: C4-C5 mild disc protrusion and impression on anterior cord C5-C6 disc protrusion w/ mild cord compression C6-C7 disc herniations, impingement on the cord (chronic) PMHx: Chronic spinal stenosis. Disc herniations. Ulcerative colitis. Crohn's disease. Procedures: Consults: Neurosurgery. Case management. Diet: Regular diet. Tolerating po diet. Encourage good po intake with each meal. Pulmonary: Encourage good pulmonary toileting. IS at bedside and pt encouraged to use. Rationale for use explained to patient, and verbalized understanding. PAIN Management: Oxycodone 5-10 mg q4h. Dilaudid 0.5 mg q 4h for breakthrough pain. Neurontin 600 mg TID. Anxiety: Resumed home Klonopin 0.5 mg BID PRN. Activity: OOB. PT and OT ordered. GI prophylaxis: Protonix 40 mg po Bowel regimen: Colace. MOM. Lactulose PRN. LBM: 03/29. DVT prophylaxis: Mechanical VTE with SCDs. Chemical management with Lovenox 30 mg BID SQ. DC Planning: Case management consulted for assistance with final discharge disposition. Emotional support provided to patient and family at bedside and plan of care discussed. Discussed with RN at bedside. Discussed pt condition and plan of care with collaborating trauma surgeon. Patient is hemodynamically stable and being managed on the med/surg floor. The trauma team will round each day, and evaluate plan of care on a daily basis. C4-C5 mild disc protrusion and impression on anterior cord C5-C6 disc protrusion w/ mild cord compression C6-C7 disc herniations, impingement on the cord (chronic) Neurosurgery consulted and assisting in management and care Waiting for final recommendation from neurosurgeons regarding plan for possible spinal stabilization tomorrow 03/28: EMG study w/ Dr. Celaya - pt was unable to complete study due to pain 03/29: Repeat EMG - Tentative plan for surgery on Tuesday (03/31) Supportive care Serial neuro checks Monitor closely Neurosurgery does not feel that steroids are warranted at this time Pain management PT and OT ordered Encourage out of bed -with assist Soft cervical collar in place Bowel regimen Lovenox and SCDs for DVT prophylaxis Right upper extremity swelling IV infiltration vs DVT Patient states her right AC IV site infiltrated - that is when right upper extremity swelling began 03/27: Ultrasound right upper extremity = NEG for DVT Pain management IV catheter has been removed Warm compresses Elevate right upper extremity Access site frequently Continue Lovenox and SCDs for DVT prophylaxis Pre-existing conditions Chronic spinal stenosis Disc herniations. Ulcerative colitis. Crohn's disease. Monitor closely Resume home medications Coreg 3.125 mg BID. Allopurinol. Mesalamine
[2018-03-30] MEDS: clonazePAM 0.5 MG Tablet PO PRN (11:44)
--- NOTE | 2018-03-30 12:40 | P.PNNS ---
Subjective Interval history: Patient in bed, no new neuro changes, reports having EMG study done yesterday, awaiting surgery this Tuesday03/31/18 <Analisa Melo - Last Filed: 03/30/18 12:34> Physical Exam Vital signs: Vital Signs 03/29/18 14:07 03/29/18 16:00 03/29/18 16:21 Temperature 98.4 F Pulse Rate 77 Respiratory Rate 16 14 16 Blood Pressure 108/67 Pulse Oximetry 03/29/18 18:14 03/29/18 21:57 03/29/18 22:45 Temperature 98.4 F Pulse Rate 84 Respiratory Rate 16 18 Blood Pressure 108/60 Pulse Oximetry 96 97 03/30/18 01:20 03/30/18 05:25 03/30/18 08:00 Temperature 98.1 F 98.1 F 98.6 F Pulse Rate 80 90 77 Respiratory Rate 17 17 18 Blood Pressure 108/68 103/55 L 97/57 L Pulse Oximetry 96 93 L 94 L Intake & Output 03/29/18 03/30/18 03/30/18 18:59 06:59 18:59 Intake Total 0 / 0 900 / 900 Balance 0 / 0 900 / 900 Weight 77.2 kg Intake: IV 0 / 0 NS Inj 1,000 ML @ 100 mls/hr IV 0 / 0 .CONT .Q10H [facility] Rx#:[id number] Oral 900 / 900 Other: # Voids 2 Date of Last Bowel Movement 03/29/18 # Bowel Movements 0 Narrative: some posterior cervical spine muscle spasm AOx3 Speech: fluent CNII-XII: intact Motor: 5/5 Sensory: Decreased LT, decreased PP along Left C6 distribution <Analisa Melo - Last Filed: 03/30/18 12:34> Vital signs: Vital Signs 03/31/18 10:47 03/31/18 12:00 03/31/18 18:04 Temperature 98.6 F 98.8 F Pulse Rate 72 114 H Respiratory Rate 18 16 22 Blood Pressure 98/58 L 133/79 Pulse Oximetry 99 99 03/31/18 18:15 03/31/18 18:30 03/31/18 18:45 Temperature Pulse Rate 119 H 120 H 118 H Respiratory Rate 18 15 16 Blood Pressure 136/79 143/85 H 150/81 H Pulse Oximetry 99 98 99 03/31/18 19:00 03/31/18 19:05 03/31/18 19:15 Temperature Pulse Rate 116 H 114 H Respiratory Rate 16 16 15 Blood Pressure 148/86 H 155/92 H Pulse Oximetry 99 99 03/31/18 19:30 03/31/18 19:35 03/31/18 19:40 Temperature 97.6 F Pulse Rate 117 H 115 H Respiratory Rate 15 16 Blood Pressure 152/86 H 150/89 H Pulse Oximetry 95 95 95 03/31/18 20:12 03/31/18 23:10 04/01/18 03:21 Temperature 98.5 F 98.7 F 98.5 F Pulse Rate 110 H 113 H 107 H Respiratory Rate 18 17 18 Blood Pressure 156/83 H 141/87 H 176/91 H Pulse Oximetry 94 L 94 L 95 04/01/18 03:30 04/01/18 07:11 04/01/18 07:33 Temperature 99.4 F Pulse Rate 110 H Respiratory Rate 17 18 16 Blood Pressure 151/91 H Pulse Oximetry 93 L 04/01/18 08:34 Temperature Pulse Rate Respiratory Rate 18 Blood Pressure Pulse Oximetry Intake & Output 03/31/18 04/01/18 04/01/18 18:59 06:59 18:59 Intake Total 850 / 850 Output Total 1725 / 1725 800 / 800 Balance -875 / -875 -800 / -800 Weight 74.8 kg Intake: IV 250 / 250 Vancomycin Inj 1,000 MG In NS 250 / 250 Inj 250 ML @ 250 mls/hr IV.SIG Q12H [facility] Rx#:[id number] Anesthesia Amount 600 / 600 Output: Estimated Blood Loss 75 / 75 Urine Amount (Catheter) 1650 / 1650 800 / 800 Indwelling Urethral Catheter 1650 / 1650 800 / 800 Other: # Voids 1 Date of Last Bowel Movement 03/29/18 03/29/18 <Luis Morales - Last Filed: 04/01/18 10:00> Assessment and Plan - Plan 54 yo female with multi-level cervical disease,with progressive neck pain and left upper extremity radiculopathy s/p fall. GCS-15 Acute on chronic disc disease would admit for pain control Neuro checks q 4hrs soft cervical collar for comfort No indications for steroid therapy Will follow 03/27/2018 continues to complain of left C7/C8 radicular pain MRI Cervical spine was again reviewed by neurosurgery team she has multilevel spondylosis causing NF stenosis no significant cord compression, EMG/NCV of upper extremities with Dr. Cleaya to better assess continue supportive care will follow 03/28/2018 patient unable to complete EMG testing with Dr. Celaya this morning due to pain intolerance patient tentatively scheduled this Tuesday for ACDF EMG to be reattempted tomorrow will follow 03/29/18 repeat EMG/NCV this morning, provide valium prior to exam follow up EMG result Neurosurgery team has again discussed with the patient regarding surgery and answered all questions and concerns will follow 03/30/[address] Celaya 03/29/18, results reported to Dr. Morales Patient continues to have LUE weakness Patient scheduled for ACDF of C5-6, C6-7 this Tuesday03/31/18 Continue current medical management will follow <Analisa Melo - Last Filed: 03/30/18 12:34> - Attending Attestation I have personally seen and examined the patient reviewed pertinent labs and imaging studies with the Neurosurgery team. I agree with Ms. Melo's ( Neurosurgery PA), assessment as well as plan of care. <Luis Morales - Last Filed: 04/01/18 10:00>
[2018-03-30] MEDS: Acetaminophen 325 MG Tablet PO PRN (17:36)
[2018-03-30] MEDS ORDERED: Chlorhexidine 4% Topical 120 APPLIC/120 ML Bottle TOPICAL ONE (20:00)
[2018-03-31] MEDS: HYDROmorphone PF Inj 0.5 MG/0.5 ML Syringe IV.PUSH PRN ×3 (01:39→21:14)
[2018-03-31] MEDS: Docusate Sodium 100 MG Capsule PO SCH ×2 (02:24→08:32)
[2018-03-31] MEDS ORDERED: Vancomycin Inj 1,000 MG in Sodium Chlor 0.9% Inj 250 ML IV.SIG SCH (03:00)
[2018-03-31] MEDS: Sod Chloride 0.9% Inj 1,000 ML IV.CONT SCH ×2 (08:22→12:28)
[2018-03-31] MEDS: Gabapentin 300 MG Capsule PO SCH ×2 (08:31→12:28)
[2018-03-31] MEDS: Mesalamine 800 MG Tablet DR PO SCH (08:31)
[2018-03-31] MEDS: Allopurinol 100 MG Tablet PO SCH (08:31)
--- NOTE | 2018-03-31 10:39 | P.PN ---
Physical Exam Vital signs: Vital Signs 03/30/18 12:00 03/30/18 16:00 03/30/18 17:55 Temperature 97.5 F L 99.0 F Pulse Rate 83 81 Respiratory Rate 18 18 Blood Pressure 111/67 96/65 L 113/74 Pulse Oximetry 93 L 93 L 03/30/18 19:12 03/30/18 23:02 03/31/18 00:00 Temperature 98.0 F 98.2 F Pulse Rate 80 84 Respiratory Rate 18 18 16 Blood Pressure 111/71 105/72 Pulse Oximetry 96 95 03/31/18 03:30 03/31/18 08:00 Temperature 98.5 F 98.7 F Pulse Rate 76 83 Respiratory Rate 17 16 Blood Pressure 101/54 L 134/75 Pulse Oximetry 96 95 Intake & Output 03/30/18 03/31/18 03/31/18 18:59 06:59 18:59 Intake Total 480 / 480 Balance 480 / 480 Weight 74.8 kg Intake: Oral 480 / 480 Other: # Voids 3 3 Date of Last Bowel Movement 03/29/18 03/29/18 Narrative: GENERAL: This is a 52 year old female sitting up in bed. No distress noted SKIN: Warm and dry. HEAD: Atraumatic. Normocephalic. EYES: PERRLA ENT: No nasal bleeding or discharge. Mucous membranes pink and moist. NECK: Soft cervical collar in place. Trachea midline. No JVD. CARDIOVASCULAR: Regular rate and rhythm. RESPIRATORY: No accessory muscle use. Lungs are clear to auscultation. Breath sounds equal bilaterally. No distress or dyspnea. GASTROINTESTINAL: BS + x 4 quads. Abdomen soft, non-tender, nondistended. MUSCULOSKELETAL: Extremities without cyanosis. + peripheral pulses x 4 extremities. Warm with good capillary refill. NEUROLOGICAL: Awake and alert. Normal speech and pattern Results - Labs CBC & Chem 7: 03/28/18 04:33 03/27/18 04:53 Assessment and Plan - Assessment (1) Cord compression Code(s): G95.20 - Unspecified cord compression Status: Acute (2) Protrusion of cervical intervertebral disc Code(s): M50.20 - Other cervical disc displacement, unspecified cervical region Status: Acute - Plan MATCH-E-BE-NASH-SHE-WISH BAND: This is a 88-sea-bmnk-old female who sustained a mechanical fall. She slipped and fell backwards into a doorway. She hit her head, and mid back. She complained initially of tingling to her hands and weakness to her left lower extremity. GCS 15. INJURIES: C4-C5 mild disc protrusion and impression on anterior cord C5-C6 disc protrusion w/ mild cord compression C6-C7 disc herniations, impingement on the cord (chronic) PMHx: Chronic spinal stenosis. Disc herniations. Ulcerative colitis. Crohn's disease. Procedures: Consults: Neurosurgery. Case management. Diet: Regular diet. Tolerating po diet. Encourage good po intake with each meal. Pulmonary: Encourage good pulmonary toileting. IS at bedside and pt encouraged to use. Rationale for use explained to patient, and verbalized understanding. PAIN Management: Oxycodone 5-10 mg q4h. Dilaudid 0.5 mg q 4h for breakthrough pain. Neurontin 600 mg TID. Anxiety: Resumed home Klonopin 0.5 mg BID PRN. Activity: OOB. PT and OT ordered. GI prophylaxis: Protonix 40 mg po Bowel regimen: Colace. MOM. Lactulose PRN. LBM: 03/29. DVT prophylaxis: Mechanical VTE with SCDs. Chemical management with Lovenox 30 mg BID SQ. DC Planning: Case management consulted for assistance with final discharge disposition. Emotional support provided to patient and family at bedside and plan of care discussed. Discussed with RN at bedside. Discussed pt condition and plan of care with collaborating trauma surgeon. Patient is hemodynamically stable and being managed on the med/surg floor. The trauma team will round each day, and evaluate plan of care on a daily basis. C4-C5 mild disc protrusion and impression on anterior cord C5-C6 disc protrusion w/ mild cord compression C6-C7 disc herniations, impingement on the cord (chronic) Neurosurgery consulted and assisting in management and care Waiting for final recommendation from neurosurgeons regarding plan for possible spinal stabilization tomorrow 03/28: EMG study w/ Dr. Celaya - pt was unable to complete study due to pain 03/29: Repeat EMG - Tentative plan for surgery on Tuesday (03/31) Supportive care Serial neuro checks Monitor closely Neurosurgery does not feel that steroids are warranted at this time Pain management PT and OT ordered Encourage out of bed -with assist Soft cervical collar in place Bowel regimen Lovenox and SCDs for DVT prophylaxis Right upper extremity swelling IV infiltration vs DVT Patient states her right AC IV site infiltrated - that is when right upper extremity swelling began 03/27: Ultrasound right upper extremity = NEG for DVT Pain management IV catheter has been removed Warm compresses Elevate right upper extremity Access site frequently Continue Lovenox and SCDs for DVT prophylaxis Pre-existing conditions Chronic spinal stenosis Disc herniations. Ulcerative colitis. Crohn's disease. Monitor closely Resume home medications Coreg 3.125 mg BID. Allopurinol. Mesalamine
--- NOTE | 2018-03-31 11:25 | ECG ---
Date Performed: 03/31/2018 Time Performed: 08:08:36 PTAGE: 52 years EKG: Sinus rhythm MINIMAL VOLTAGE CRITERIA FOR LVH, CONSIDER NORMAL VARIANT BORDERLINE ECG NO PREVIOUS TRACING DOCTOR: Slade Yanes Interpretating Date/Time 03/31/2018 11:24:18
[2018-03-31] MEDS ORDERED: Petrolatum,White 4 GM STICK TOPICAL PRN (12:36)
[2018-03-31] MEDS ORDERED: Chlorhexidine Gluconate 2% 1 Pack (2 Cloths) TOPICAL ONE ×2 (13:00)
[2018-03-31] MEDS ORDERED: Sodium Chlor 0.9% Inj 500 ML IV.CONT ONE ×3 (13:00→13:50)
[2018-03-31] MEDS ORDERED: Metoprolol Tartrate 25 MG Tablet PO ONE ×2 (13:00)
[2018-03-31] MEDS ORDERED: Lidocaine 1%/Epinephrine 1:100,000 Inj 50 ML Vial ONE (13:21)
[2018-03-31] MEDS ORDERED: Thrombin Topical Soln 5,000 UNIT Vial TOPICAL ONE (13:21)
[2018-03-31] MEDS ORDERED: Gelatin Size 100 Topical Foam ONE (13:21)
[2018-03-31] MEDS ORDERED: Hydrocortisone Sod Succinate 100 MG Vial ONE (13:41)
[2018-03-31] MEDS ORDERED: Lidocaine PF 1% Inj 5 ML Syringe OTHER ONE (13:50)
[2018-03-31] MEDS ORDERED: Glycopyrrolate Inj 1 MG/5 ML Syringe IV.PUSH ONE (13:50)
[2018-03-31] MEDS ORDERED: Succinylcholine Inj 100 MG/5 ML Syringe IV.PUSH ONE (13:50)
[2018-03-31] MEDS ORDERED: Phenylephrine/NS 1000 MCG/10ML Syringe IV.PUSH ONE (13:50)
[2018-03-31] MEDS ORDERED: Normosol-R pH 7.4 Inj 2,000 ML IV.CONT ONE (13:50)
[2018-03-31] MEDS ORDERED: Neostigmine Inj 5 MG/5 ML Syringe IV.PUSH ONE (13:50)
[2018-03-31] MEDS: Vancomycin Inj 1,000 MG in Sodium Chlor 0.9% Inj 250 ML IV.SIG SCH (14:35)
--- NOTE | 2018-03-31 14:56 | P.PN ---
Subjective Interval history: Trauma PTD: 6 Patient sitting up in bed. No distress noted. No complaints offered. No acute events overnight. "I am ready for surgery today." Physical Exam Vital signs: Vital Signs 03/30/18 16:00 03/30/18 17:55 03/30/18 19:12 Temperature 99.0 F 98.0 F Pulse Rate 81 80 Respiratory Rate 18 18 Blood Pressure 96/65 L 113/74 111/71 Pulse Oximetry 93 L 96 03/30/18 23:02 03/31/18 00:00 03/31/18 03:30 Temperature 98.2 F 98.5 F Pulse Rate 84 76 Respiratory Rate 18 16 17 Blood Pressure 105/72 101/54 L Pulse Oximetry 95 96 03/31/18 08:00 03/31/18 09:01 03/31/18 10:47 Temperature 98.7 F Pulse Rate 83 Respiratory Rate 16 18 18 Blood Pressure 134/75 Pulse Oximetry 95 03/31/18 12:00 Temperature 98.6 F Pulse Rate 72 Respiratory Rate 16 Blood Pressure 98/58 L Pulse Oximetry 99 Intake & Output 03/30/18 03/31/18 03/31/18 18:59 06:59 18:59 Intake Total 480 / 480 Balance 480 / 480 Weight 74.8 kg Intake: Oral 480 / 480 Other: # Voids 3 3 Date of Last Bowel Movement 03/29/18 03/29/18 03/29/18 Narrative: GENERAL: This is a 52 year old female sitting up in bed. No distress noted SKIN: Warm and dry. HEAD: Atraumatic. Normocephalic. EYES: PERRLA ENT: No nasal bleeding or discharge. Mucous membranes pink and moist. NECK: Soft cervical collar in place. Trachea midline. No JVD. CARDIOVASCULAR: Regular rate and rhythm. RESPIRATORY: No accessory muscle use. Lungs are clear to auscultation. Breath sounds equal bilaterally. No distress or dyspnea. GASTROINTESTINAL: BS + x 4 quads. Abdomen soft, non-tender, nondistended. MUSCULOSKELETAL: Extremities without cyanosis. + peripheral pulses x 4 extremities. Warm with good capillary refill. NEUROLOGICAL: Awake and alert. Normal speech and pattern - Urinary Catheter Management Indwelling Urethral Catheter Cath placed during this visit: yes Reason for continuing: Hourly intake/output Insertion date: 03/31/18 Insertion time: 14:30 Results - Labs CBC & Chem 7: 03/28/18 04:33 03/27/18 04:53 Assessment and Plan - Assessment (1) Cord compression Code(s): G95.20 - Unspecified cord compression Status: Acute (2) Protrusion of cervical intervertebral disc Code(s): M50.20 - Other cervical disc displacement, unspecified cervical region Status: Acute - Plan [place]: This is a [id number]-old female who sustained a mechanical fall. She slipped and fell backwards into a doorway. She hit her head, and mid back. She complained initially of tingling to her hands and weakness to her left lower extremity. GCS 15. INJURIES: C4-C5 mild disc protrusion and impression on anterior cord C5-C6 disc protrusion w/ mild cord compression C6-C7 disc herniations, impingement on the cord (chronic) PMHx: Chronic spinal stenosis. Disc herniations. Ulcerative colitis. Crohn's disease. Procedures: Consults: Neurosurgery. Case management. Diet: Regular diet. Tolerating po diet. Encourage good po intake with each meal. Pulmonary: Encourage good pulmonary toileting. IS at bedside and pt encouraged to use. Rationale for use explained to patient, and verbalized understanding. PAIN Management: Oxycodone 5-10 mg q4h. Dilaudid 0.5 mg q 4h for breakthrough pain. Neurontin 600 mg TID. Anxiety: Resumed home Klonopin 0.5 mg BID PRN. Activity: OOB. PT and OT ordered. GI prophylaxis: Protonix 40 mg po Bowel regimen: Colace. MOM. Lactulose PRN. LBM: 03/29. DVT prophylaxis: Mechanical VTE with SCDs. Chemical management with Lovenox 30 mg BID SQ. DC Planning: Case management consulted for assistance with final discharge disposition. Emotional support provided to patient and family at bedside and plan of care discussed. Discussed with RN at bedside. Discussed pt condition and plan of care with collaborating trauma surgeon. Patient is hemodynamically stable and being managed on the med/surg floor. The trauma team will round each day, and evaluate plan of care on a daily basis. C4-C5 mild disc protrusion and impression on anterior cord C5-C6 disc protrusion w/ mild cord compression C6-C7 disc herniations, impingement on the cord (chronic) Neurosurgery consulted and assisting in management and care Waiting for final recommendation from neurosurgeons regarding plan for possible spinal stabilization tomorrow 03/28: EMG study w/ Dr. Celaya - pt was unable to complete study due to pain 03/29: Repeat EMG - 03/31: Plan for OR with neurosurgery today Supportive care Serial neuro checks Monitor closely Neurosurgery does not feel that steroids are warranted at this time Pain management PT and OT ordered Encourage out of bed -with assist Soft cervical collar in place Bowel regimen Lovenox and SCDs for DVT prophylaxis Right upper extremity swelling IV infiltration vs DVT Patient states her right AC IV site infiltrated - that is when right upper extremity swelling began 03/27: Ultrasound right upper extremity = NEG for DVT Pain management IV catheter has been removed Warm compresses Elevate right upper extremity Access site frequently Continue Lovenox and SCDs for DVT prophylaxis Pre-existing conditions Chronic spinal stenosis Disc herniations. Ulcerative colitis. Crohn's disease. Monitor closely Resume home medications Coreg 3.125 mg BID. Allopurinol. Mesalamine
[2018-03-31] MEDS ORDERED: fentaNYL Citrate Inj 100 MCG/2 ML Ampul ONE ×2 (15:01→18:34)
--- NOTE | 2018-03-31 17:45 | XR ---
EXAM DATE: 03/31/2018 5:43 PM EST AGE/SEX: 52 years / Female INDICATIONS: ACDF C5/6 C6/7. CLINICAL DATA: This is the patient's subsequent encounter. Patient reports that signs and symptoms h ave been present for 1 week and indicates a pain score of Nonresponsive. MEDICAL/SURGICAL HISTORY: Non-responsive. Non-responsive. COMPARISON: No prior exams available for comparison. FINDINGS: 3 spot intraoperative fluoroscopic views of the cervical spine in the AP and lateral projections demo nstrate intervertebral fusion hardware placement at C5-6 and C6-7. CONCLUSION: Post surgical changes at C5-6 and C6-7. Electronically signed by: Joey Alfred MD Board Certified Radiologist 03/31/2018 5:44 PM EST
--- NOTE | 2018-03-31 17:54 | P.PCN ---
Date of procedure: 03/31/18 Pre-op diagnosis: C5/6,C6/7 cervical spondylosis with radiculopathy Post-op diagnosis: same Procedure: C5/6, C6/7 Anterior Cervical Discectomy and fusion with spinal instrumentation Neuromonitoring Microscope Anesthesia: SAVIA Surgeon: Luis Morales Estimated blood loss (mL): 50 Pathology: none sent Condition: stable Disposition: PACU (Extubated awake, alert, [id number] commands. Moving all 4 extremities well.)
[2018-03-31 18:42] LABS: Baso % (Auto) 0.3 % (0.0-2.0); Eos % (Auto) 0.2 % (0.0-4.0); Hematocrit 35.9 % (35.0-46.0); Hemoglobin 11.9 gm/dL (11.6-15.3); Lymph # (Auto) 0.6 th/mm3 (1.0-4.8); Lymph % (Auto) 7.2 % (9.0-44.0); Mean Corpuscular Hemoglobin 32.9 pg (27.0-34.0); Mean Corpuscular Volume 99.6 fL (80.0-100.0); Mean Platelet Volume 8.2 fL (7.0-11.0); Mono # (Auto) 0.1 th/mm3 (0.0-0.9); Mono % (Auto) 1.4 % (0.0-8.0); Neut # (Auto) 7.5 th/mm3 (1.8-7.7); Neut % (Auto) 90.9 % (16.0-70.0); Platelet Count 237 th/mm3 (150-450); Red Blood Count 3.61 mil/mm3 (4.00-5.30); Red Cell Distribution Width 14.8 % (11.6-17.2); White Blood Count 8.3 th/mm3 (4.0-11.0)
[2018-03-31] MEDS ORDERED: *Ondansetron Inj 4 MG/2 ML Vial PERIprocedural Use ONLY ONE (18:56)
[2018-03-31] MEDS ORDERED: *morphine SULFATE 4 MG/ML PERIprocedure ONLY ONE (18:56)
[2018-03-31 19:14] LABS: Anion Gap 9 meq/L (5-15); Blood Urea Nitrogen 4 mg/dL (7-18); Carbon Dioxide 27.5 meq/L (21.0-32.0); Chloride 108 meq/L (98-107); Glomerular Filtration Rate Greater Than 89 mL/min (>89); Glucose,Random 121 mg/dL (74-106); Sodium 144 meq/L (136-145)
[2018-03-31 19:15] LABS: Potassium 4.8 meq/L (3.5-5.1)
[2018-04-01] MEDS: HYDROmorphone PF Inj 0.5 MG/0.5 ML Syringe IV.PUSH PRN ×6 (01:00→22:17)
[2018-04-01] MEDS ORDERED: Phenol 1.4% 180 ML Spray Bottle PO PRN (01:14)
[2018-04-01] MEDS: Gabapentin 300 MG Capsule PO SCH ×2 (02:03→10:23)
[2018-04-01] MEDS: Docusate Sodium 100 MG Capsule PO SCH ×3 (02:04→20:18)
[2018-04-01] MEDS: Sod Chloride 0.9% Inj 1,000 ML IV.CONT SCH ×3 (02:04→17:08)
[2018-04-01] MEDS: Vancomycin Inj 1,000 MG in Sodium Chlor 0.9% Inj 250 ML IV.SIG SCH (02:50)
[2018-04-01] MEDS: clonazePAM 0.5 MG Tablet PO PRN (03:24)
[2018-04-01] MEDS ORDERED: Aluminum/Magnesium/Simethacone Susp 30 ML UDC PO PRN (04:36)
[2018-04-01 05:17] LABS: Baso % (Auto) 0.3 % (0.0-2.0); Hematocrit 34.4 % (35.0-46.0); Hemoglobin 11.4 gm/dL (11.6-15.3); Lymph # (Auto) 1.5 th/mm3 (1.0-4.8); Lymph % (Auto) 15.3 % (9.0-44.0); Mean Corpuscular HGB Conc 33.1 % (32.0-36.0); Mean Corpuscular Hemoglobin 32.3 pg (27.0-34.0); Mean Corpuscular Volume 97.5 fL (80.0-100.0); Mean Platelet Volume 8.2 fL (7.0-11.0); Mono # (Auto) 0.8 th/mm3 (0.0-0.9); Mono % (Auto) 7.8 % (0.0-8.0); Neut # (Auto) 7.7 th/mm3 (1.8-7.7); Neut % (Auto) 76.6 % (16.0-70.0); Platelet Count 231 th/mm3 (150-450); Red Blood Count 3.53 mil/mm3 (4.00-5.30); Red Cell Distribution Width 14.4 % (11.6-17.2); White Blood Count 10.1 th/mm3 (4.0-11.0)
[2018-04-01 05:47] LABS: Anion Gap 7 meq/L (5-15); Blood Urea Nitrogen 8 mg/dL (7-18); Calcium 8.5 mg/dL (8.5-10.1); Carbon Dioxide 29.1 meq/L (21.0-32.0); Chloride 108 meq/L (98-107); Glomerular Filtration Rate Greater Than 89 mL/min (>89); Glucose,Random 91 mg/dL (74-106); Sodium 144 meq/L (136-145)
--- NOTE | 2018-04-01 08:38 | CT ---
EXAM DATE: 04/01/2018 8:26 AM EST AGE/SEX: 52 years / Female INDICATIONS: Post operative cervical surgery. CLINICAL DATA: This is the patient's initial encounter. Patient reports that signs and symptoms have been present for 2 days and indicates a pain score of 8/10. MEDICAL/SURGICAL HISTORY: . Spinal stenosis. Bulging disc. Colitis. Cholecystectomy. Appende ctomy. Cervical surgery. RADIATION DOSE: 20.96 CTDI (mGy) COMPARISON: [facility] – [place], MR CERVICAL SPINE W/O CONTRAST, 03/25/2018. . TECHNIQUE: Contiguous axial images were obtained using helical multirow detector technique. The vol umetric data was post-processed with multiplanar reconstruction in oblique axial, sagittal, and coron al planes. Using automated exposure control and adjustment of the mA and/or kV according to patient s ize, radiation dose was kept as low as reasonably achievable to obtain optimal diagnostic quality yossi ges. DICOM format image data is available electronically for review and comparison. FINDINGS: Vertebrae: Status post anterior cervical fusion at C5-C6 and C6-C7. Minimal postsurgical changes are present in prevertebral soft tissues Alignment: Normal. No subluxation. C2-3: The bony spinal canal is normal in size. No evidence of disc bulge or herniation. The neural foramina are bilaterally patent. C3-4: The bony spinal canal is normal in size. No evidence of disc bulge or herniation. The neural foramina are bilaterally patent. C4-5: Again seen is the interspace ridging with mild spinal stenosis. There is mild to moderate righ t neural foraminal encroachment. C5-6: Interbody fusion is present. Moderate uncinate ridging persist central to right-sided moderate right-sided neural foraminal encroachment. C6-7: Interbody fusion is present with without significant spinal stenosis. Minimal left-sided neura l foraminal encroachment is present. C7-T1: The bony spinal canal is normal in size. No evidence of disc bulge or herniation. The neura l foramina are bilaterally patent. CONCLUSION: 1. Postoperative changes as above. Electronically signed by: Vignesh Golden MD Board Certified Radiologist 04/01/2018 8:37 AM EST
[2018-04-01] MEDS ORDERED: Ketorolac Inj 30 MG/ML (IVP) Vial IV.PUSH SCH (09:15)
[2018-04-01] MEDS: Methocarbamol 500 MG Tablet PO SCH ×5 (10:22→21:03)
[2018-04-01] MEDS: Mesalamine 800 MG Tablet DR PO SCH (10:22)
[2018-04-01] MEDS: Allopurinol 100 MG Tablet PO SCH ×2 (10:22→10:32)
[2018-04-01] MEDS ORDERED: Sodium Chloride 0.9% 2 ML Flush PRN IV.FLUSH (10:50)
--- NOTE | 2018-04-01 11:03 | P.PN ---
Subjective Interval history: Reports 11/16 neck pain unrelieved by meds States LUE weakness and paresthesias have improved Reports dysphagia Physical Exam Vital signs: Vital Signs 03/31/18 12:00 03/31/18 18:04 03/31/18 18:15 Temperature 98.6 F 98.8 F Pulse Rate 72 114 H 119 H Respiratory Rate 16 22 18 Blood Pressure 98/58 L 133/79 136/79 Pulse Oximetry 99 99 99 03/31/18 18:30 03/31/18 18:45 03/31/18 19:00 Temperature Pulse Rate 120 H 118 H 116 H Respiratory Rate 15 16 16 Blood Pressure 143/85 H 150/81 H 148/86 H Pulse Oximetry 98 99 99 03/31/18 19:05 03/31/18 19:15 03/31/18 19:30 Temperature Pulse Rate 114 H 117 H Respiratory Rate 16 15 15 Blood Pressure 155/92 H 152/86 H Pulse Oximetry 99 95 03/31/18 19:35 03/31/18 19:40 03/31/18 20:12 Temperature 97.6 F 98.5 F Pulse Rate 115 H 110 H Respiratory Rate 16 18 Blood Pressure 150/89 H 156/83 H Pulse Oximetry 95 95 94 L 03/31/18 23:10 04/01/18 03:21 04/01/18 03:30 Temperature 98.7 F 98.5 F Pulse Rate 113 H 107 H Respiratory Rate 17 18 17 Blood Pressure 141/87 H 176/91 H Pulse Oximetry 94 L 95 04/01/18 07:11 04/01/18 07:33 04/01/18 08:34 Temperature 99.4 F Pulse Rate 110 H Respiratory Rate 18 16 18 Blood Pressure 151/91 H Pulse Oximetry 93 L Intake & Output 03/31/18 04/01/18 04/01/18 18:59 06:59 18:59 Intake Total 850 / 850 Output Total 1725 / 1725 800 / 800 Balance -875 / -875 -800 / -800 Weight 74.8 kg Intake: IV 250 / 250 Vancomycin Inj 1,000 MG In NS 250 / 250 Inj 250 ML @ 250 mls/hr IV.SIG Q12H [facility] Rx#:[id number] Anesthesia Amount 600 / 600 Output: Estimated Blood Loss 75 / 75 Urine Amount (Catheter) 1650 / 1650 800 / 800 Indwelling Urethral Catheter 1650 / 1650 800 / 800 Other: # Voids 1 Date of Last Bowel Movement 03/29/18 03/29/18 Narrative: GENERAL: 52 year old well-nourished female sitting up in bed in NAD. SKIN: Warm and dry. NECK: Trachea midline. No JVD. Mason J collar. Anterior neck surgical dressing with small amount of sanguinous drainage noted. CARDIOVASCULAR: Regular rate and rhythm. RESPIRATORY: No accessory muscle use. Lungs clear to auscultation bilaterally. GASTROINTESTINAL: Abdomen soft, non-tender, nondistended. + BS. MUSCULOSKELETAL: Extremities without cyanosis, or edema. LUE 3/5, RUE 4/5, BLE 4 /5 strength, KIRK, + perfused NEUROLOGICAL: Awake and alert. Normal speech. - Urinary Catheter Management Indwelling Urethral Catheter Cath placed during this visit: yes, but has since been removed by the nurse Reason for continuing: Hourly intake/output Insertion date: 03/31/18 Insertion time: 14:30 Removal date: 04/01/18 Results - Labs CBC & Chem 7: 04/01/18 04:33 04/01/18 04:33 Laboratory Results - last 24 hr 03/31/18 03/31/18 04/01/18 18:24 18:24 04:33 WBC 8.3 10.1 RBC 3.61 L 3.53 L Hgb 11.9 11.4 L Hct 35.9 34.4 L MCV 99.6 97.5 MCH 32.9 32.3 MCHC 33.0 33.1 RDW 14.8 14.4 Plt Count 237 231 MPV 8.2 8.2 Neut % (Auto) 90.9 H 76.6 H Lymph % (Auto) 7.2 L 15.3 Floyd % (Auto) 1.4 7.8 Eos % (Auto) 0.2 0.0 Baso % (Auto) 0.3 0.3 Neut # (Auto) 7.5 7.7 Lymph # (Auto) 0.6 L 1.5 [place] # (Auto) 0.1 0.8 Eos # (Auto) 0.0 0.0 Baso # (Auto) 0.0 0.0 WBC Differential . . Differential Comment Auto diff final Auto diff final Sodium 144 Potassium 4.8 Chloride 108 H Carbon Dioxide 27.5 Anion Gap 9 BUN 4 L Creatinine 0.58 Estimated GFR Greater than 89 Random Glucose 121 H Calcium 8.0 L 04/01/18 04:33 WBC RBC Hgb Hct MCV MCH MCHC RDW Plt Count MPV Neut % (Auto) Lymph % (Auto) Floyd % (Auto) Eos % (Auto) Baso % (Auto) Neut # (Auto) Lymph # (Auto) [place] # (Auto) Eos # (Auto) Baso # (Auto) WBC Differential Differential Comment Sodium 144 Potassium 4.0 D Chloride 108 H Carbon Dioxide 29.1 Anion Gap 7 BUN 8 Creatinine 0.56 Estimated GFR Greater than 89 Random Glucose 91 Calcium 8.5 - Imaging Impressions Cervical Spine X-Ray 03/31/18 00:00 CONCLUSION: Post surgical changes at C5-6 and C6-7. Cervical Spine CT 04/01/18 06:00 CONCLUSION: 1. Postoperative changes as above. Assessment and Plan - Assessment (1) Cord compression Code(s): G95.20 - Unspecified cord compression Status: Acute (2) Protrusion of cervical intervertebral disc Code(s): M50.20 - Other cervical disc displacement, unspecified cervical region Status: Acute - Plan [place]: Slipped and fell backwards striking her head and mid back. BUE paresthesias, weakness on left. ?LOC. GCS 15. INJURIES: C4-C5 mild disc protrusion and impression on anterior cord C5-C6 disc protrusion w/ mild cord compression C6-C7 disc herniations, impingement on the cord (chronic) LUE radiculopathy PMHx: Chronic spinal stenosis. Disc herniations. Ulcerative colitis. Crohn's disease. Previous DVT from a PICC C4-C5 mild disc protrusion and impression on anterior cord, C5-C6 disc protrusion w/ mild cord compression, C6-C7 disc herniations, impingement on the cord, LUE radiculopathy Neurosurgery consulted 03/31: C5/6, C6/7 Anterior Cervical Discectomy and fusion with spinal instrumentation Continue neuro checks Pain control- adjusted pain meds for better control Bowel regimen OOB- PT and OT ordered Resume Lovenox when OK with NS ST consulted for swallow eval for post-op dysphagia Pre-existing conditions: Chronic spinal stenosis, Disc herniations, Ulcerative colitis, Crohn's disease Resume home medications Plan of care discussed with patient and RN at bedside. Collaborating Trauma MD agrees with plan. Case management consulted to assist with discharge planning.
[2018-04-01] MEDS: Lidocaine 5% Patch T-DERMAL SCH (11:58)
[2018-04-01] MEDS: Gabapentin Liq 250 MG/5 ML UDC PO SCH ×2 (12:00→18:18)
--- NOTE | 2018-04-01 12:22 | P.PNNS ---
Subjective Interval history: April 01, 2018 The patient has been stable overnight. He complains of some difficulty swallowing as well as some incisional pain. She states that the weakness and numbness that she had in her upper extremities has improved. Physical Exam Vital signs: Vital Signs 03/31/18 18:04 03/31/18 18:15 03/31/18 18:30 Temperature 98.8 F Pulse Rate 114 H 119 H 120 H Respiratory Rate 22 18 15 Blood Pressure 133/79 136/79 143/85 H Pulse Oximetry 99 99 98 03/31/18 18:45 03/31/18 19:00 03/31/18 19:05 Temperature Pulse Rate 118 H 116 H Respiratory Rate 16 16 16 Blood Pressure 150/81 H 148/86 H Pulse Oximetry 99 99 03/31/18 19:15 03/31/18 19:30 03/31/18 19:35 Temperature Pulse Rate 114 H 117 H Respiratory Rate 15 15 Blood Pressure 155/92 H 152/86 H Pulse Oximetry 99 95 95 03/31/18 19:40 03/31/18 20:12 03/31/18 23:10 Temperature 97.6 F 98.5 F 98.7 F Pulse Rate 115 H 110 H 113 H Respiratory Rate 16 18 17 Blood Pressure 150/89 H 156/83 H 141/87 H Pulse Oximetry 95 94 L 94 L 04/01/18 03:21 04/01/18 03:30 04/01/18 07:11 Temperature 98.5 F Pulse Rate 107 H Respiratory Rate 18 17 18 Blood Pressure 176/91 H Pulse Oximetry 95 04/01/18 07:33 04/01/18 08:34 04/01/18 10:53 Temperature 99.4 F Pulse Rate 110 H Respiratory Rate 16 18 16 Blood Pressure 151/91 H Pulse Oximetry 93 L Intake & Output 03/31/18 04/01/18 04/01/18 18:59 06:59 18:59 Intake Total 850 / 850 Output Total 1725 / 1725 800 / 800 Balance -875 / -875 -800 / -800 Weight 74.8 kg Intake: IV 250 / 250 Vancomycin Inj 1,000 MG In NS 250 / 250 Inj 250 ML @ 250 mls/hr IV.SIG Q12H [facility] Rx#:[id number] Anesthesia Amount 600 / 600 Output: Estimated Blood Loss 75 / 75 Urine Amount (Catheter) 1650 / 1650 800 / 800 Indwelling Urethral Catheter 1650 / 1650 800 / 800 Other: # Voids 1 Date of Last Bowel Movement 03/29/18 03/29/18 03/29/18 - Routine Neurological Exam April 01, 2018 The patient is sitting up in bed is into the room. She is in no acute distress. He does seem somewhat anxious. She is just completed a swallowing study. Is afebrile and her vital signs have been stable. On neurological examination, mental status testing finds her to be awake and alert. She is oriented by 3. Cognitive functions grossly intact. His speech is fluent. Cranial nerve testing 2 through 12 is grossly intact. There were no focal motor nor sensory deficits. The patient has ambulated. The dressing is dry with minimal sanguinous drainage. The patient's postoperative laboratory evaluation is stable. A postoperative CT scan of the cervical spine reveals postoperative changes. The instrumentation is in adequate position the alignment to the cervical spine is well-maintained. - Urinary Catheter Management Indwelling Urethral Catheter Cath placed during this visit: yes, but has since been removed by the nurse Reason for continuing: Hourly intake/output Insertion date: 03/31/18 Insertion time: 14:30 Removal date: 04/01/18 Removal time: 09:15 Assessment and Plan - Plan 54 yo female with multi-level cervical disease,with progressive neck pain and left upper extremity radiculopathy s/p fall. GCS-15 Acute on chronic disc disease would admit for pain control Neuro checks q 4hrs soft cervical collar for comfort No indications for steroid therapy Will follow 03/27/2018 continues to complain of left C7/C8 radicular pain MRI Cervical spine was again reviewed by neurosurgery team she has multilevel spondylosis causing NF stenosis no significant cord compression, EMG/NCV of upper extremities with Dr. Celaya to better assess continue supportive care will follow 03/28/2018 patient unable to complete EMG testing with Dr. Celaya this morning due to pain intolerance patient tentatively scheduled this Tuesday for ACDF EMG to be reattempted tomorrow will follow 03/29/18 repeat EMG/NCV this morning, provide valium prior to exam follow up EMG result Neurosurgery team has again discussed with the patient regarding surgery and answered all questions and concerns will follow 03/30/[address] Celaya 03/29/18, results reported to Dr. Morales Patient continues to have LUE weakness Patient scheduled for ACDF of C5-6, C6-7 this Tuesday03/31/18 Continue current medical management will follow April 01, 2018 Patient is stable postoperative day #1 status post anterior cervical discectomy and fusion at C5-C6 and C6-C7. He is complaining of some mild dysphagia. She has been placed on a clear liquid diet. Neurosurgery will follow.
[2018-04-01 17:21] LABS: Baso # (Auto) 0.1 th/mm3 (0.0-0.2); Eos # (Auto) 0.1 th/mm3 (0.0-0.4); Eos % (Auto) 0.5 % (0.0-4.0); Hematocrit 35.7 % (35.0-46.0); Hemoglobin 11.7 gm/dL (11.6-15.3); Lymph # (Auto) 1.6 th/mm3 (1.0-4.8); Lymph % (Auto) 12.8 % (9.0-44.0); Mean Corpuscular HGB Conc 32.8 % (32.0-36.0); Mean Corpuscular Hemoglobin 32.5 pg (27.0-34.0); Mean Platelet Volume 8.9 fL (7.0-11.0); Mono # (Auto) 0.9 th/mm3 (0.0-0.9); Mono % (Auto) 7.2 % (0.0-8.0); Neut # (Auto) 9.6 th/mm3 (1.8-7.7); Neut % (Auto) 78.5 % (16.0-70.0); Platelet Count 232 th/mm3 (150-450); Red Blood Count 3.61 mil/mm3 (4.00-5.30); Red Cell Distribution Width 14.6 % (11.6-17.2); White Blood Count 12.2 th/mm3 (4.0-11.0)
[2018-04-01 17:56] LABS: Anion Gap 9 meq/L (5-15); Blood Urea Nitrogen 8 mg/dL (7-18); Calcium 8.3 mg/dL (8.5-10.1); Carbon Dioxide 28.4 meq/L (21.0-32.0); Chloride 105 meq/L (98-107); Glomerular Filtration Rate Greater Than 89 mL/min (>89); Glucose,Random 98 mg/dL (74-106); Potassium 3.9 meq/L (3.5-5.1); Sodium 142 meq/L (136-145)
--- NOTE | 2018-04-01 18:21 | ECG ---
Date Performed: 04/01/2018 Time Performed: 04:04:23 PTAGE: 52 years EKG: SINUS TACHYCARDIA ABNORMAL RHYTHM ECG PREVIOUS TRACING : 03/31/2018 08.08 Compared to previous tracing, rate faster DOCTOR: Deven Flores Interpretating Date/Time 04/01/2018 18:20:45
[2018-04-01] MEDS: Enoxaparin Inj 30 MG/0.3 ML Syringe SQ SCH (20:18)
[2018-04-01] MEDS: Sodium Chloride 0.9% 2 ML Flush BID IV.FLUSH SCH (20:18)
[2018-04-02] MEDS: Sod Chloride 0.9% Inj 1,000 ML IV.CONT SCH ×2 (00:01→10:15)
[2018-04-02] MEDS: HYDROmorphone PF Inj 0.5 MG/0.5 ML Syringe IV.PUSH PRN ×3 (02:59→11:37)
[2018-04-02] MEDS: Methocarbamol 500 MG Tablet PO SCH ×3 (05:42→21:30)
[2018-04-02 08:28] LABS: Baso % (Auto) 0.4 % (0.0-2.0); Eos # (Auto) 0.1 th/mm3 (0.0-0.4); Eos % (Auto) 0.5 % (0.0-4.0); Hematocrit 33.8 % (35.0-46.0); Lymph # (Auto) 1.6 th/mm3 (1.0-4.8); Lymph % (Auto) 12.1 % (9.0-44.0); Mean Corpuscular HGB Conc 32.6 % (32.0-36.0); Mean Corpuscular Hemoglobin 32.2 pg (27.0-34.0); Mean Corpuscular Volume 98.5 fL (80.0-100.0); Mean Platelet Volume 8.7 fL (7.0-11.0); Mono # (Auto) 1.1 th/mm3 (0.0-0.9); Mono % (Auto) 8.2 % (0.0-8.0); Neut # (Auto) 10.7 th/mm3 (1.8-7.7); Neut % (Auto) 78.8 % (16.0-70.0); Platelet Count 241 th/mm3 (150-450); Red Blood Count 3.43 mil/mm3 (4.00-5.30); Red Cell Distribution Width 14.6 % (11.6-17.2); White Blood Count 13.5 th/mm3 (4.0-11.0)
[2018-04-02 08:46] LABS: Anion Gap 8 meq/L (5-15); Blood Urea Nitrogen 9 mg/dL (7-18); Carbon Dioxide 29.2 meq/L (21.0-32.0); Chloride 102 meq/L (98-107); Glomerular Filtration Rate Greater Than 89 mL/min (>89); Glucose,Random 97 mg/dL (74-106); Potassium 3.7 meq/L (3.5-5.1); Sodium 139 meq/L (136-145)
[2018-04-02] MEDS: Enoxaparin Inj 30 MG/0.3 ML Syringe SQ SCH ×2 (10:00→21:30)
[2018-04-02] MEDS: Lidocaine 5% Patch T-DERMAL SCH (10:00)
[2018-04-02] MEDS: Mesalamine 800 MG Tablet DR PO SCH (10:04)
[2018-04-02] MEDS: Allopurinol 100 MG Tablet PO SCH (10:05)
[2018-04-02] MEDS: Sodium Chloride 0.9% 2 ML Flush BID IV.FLUSH SCH ×2 (10:05→21:31)
[2018-04-02] MEDS: Docusate Sodium 100 MG Capsule PO SCH ×2 (10:05→21:30)
[2018-04-02] MEDS: Gabapentin Liq 250 MG/5 ML UDC PO SCH ×4 (11:36→18:08)
--- NOTE | 2018-04-02 12:19 | P.PN ---
Subjective Interval history: Pain better controlled today Reports improving dysphagia Physical Exam Vital signs: Vital Signs 04/01/18 12:29 04/01/18 16:31 04/01/18 17:32 Temperature 101.7 F H Pulse Rate 112 H Respiratory Rate 16 16 18 Blood Pressure 146/85 H Pulse Oximetry 95 04/01/18 18:43 04/01/18 19:16 04/01/18 21:19 Temperature 99.6 F Pulse Rate 107 H Respiratory Rate 18 17 16 Blood Pressure 110/66 Pulse Oximetry 95 04/01/18 23:23 04/01/18 23:28 04/02/18 01:25 Temperature 99.8 F H Pulse Rate 102 H Respiratory Rate 17 17 17 Blood Pressure 106/66 Pulse Oximetry 95 04/02/18 03:47 04/02/18 06:36 04/02/18 08:00 Temperature 99.5 F Pulse Rate 96 H Respiratory Rate 17 17 16 Blood Pressure 102/69 Pulse Oximetry 92 L 04/02/18 08:01 04/02/18 10:30 04/02/18 12:07 Temperature Pulse Rate Respiratory Rate 16 16 18 Blood Pressure Pulse Oximetry Intake & Output 04/01/18 04/02/18 04/02/18 18:59 06:59 18:59 Intake Total 1000 / 1000 Balance 1000 / 1000 Weight 72.8 kg Intake: IV 1000 / 1000 NS Inj 1,000 ML @ 100 mls/hr IV 1000 / 1000 .CONT .Q10H [facility] Rx#:[id number] Other: # Voids 1 5 1 Date of Last Bowel Movement 03/29/18 03/29/18 03/29/18 Narrative: GENERAL: 52 year old well-nourished female sitting up in bed. SKIN: Warm and dry. NECK: Trachea midline. No JVD. Mellette J collar. Anterior neck surgical dressing C /D/I. CARDIOVASCULAR: Regular rate and rhythm. RESPIRATORY: No accessory muscle use. Lungs clear to auscultation bilaterally. GASTROINTESTINAL: Abdomen soft, non-tender, nondistended. + BS. MUSCULOSKELETAL: Extremities without cyanosis, or edema. LUE 3/5, RUE 4/5, BLE 4 /5 strength, MAEW, + perfused NEUROLOGICAL: Awake and alert. Normal speech. - Urinary Catheter Management Indwelling Urethral Catheter Cath placed during this visit: yes, but has since been removed by the nurse Reason for continuing: Hourly intake/output Insertion date: 03/31/18 Insertion time: 14:30 Removal date: 04/01/18 Removal time: 09:15 Results - Labs CBC & Chem 7: 04/02/18 06:41 04/02/18 06:41 Laboratory Results - last 24 hr 04/01/18 04/01/18 04/02/18 15:47 15:47 06:41 WBC 12.2 H 13.5 H RBC 3.61 L 3.43 L Hgb 11.7 11.0 L Hct 35.7 33.8 L MCV 99.0 98.5 MCH 32.5 32.2 MCHC 32.8 32.6 RDW 14.6 14.6 Plt Count 232 241 MPV 8.9 8.7 Neut % (Auto) 78.5 H 78.8 H Lymph % (Auto) 12.8 12.1 [place] % (Auto) 7.2 8.2 H Eos % (Auto) 0.5 0.5 Baso % (Auto) 1.0 0.4 Neut # (Auto) 9.6 H 10.7 H Lymph # (Auto) 1.6 1.6 [place] # (Auto) 0.9 1.1 H Eos # (Auto) 0.1 0.1 Baso # (Auto) 0.1 0.0 WBC Differential . . Differential Comment Auto diff final Auto diff final Sodium 142 Potassium 3.9 Chloride 105 Carbon Dioxide 28.4 Anion Gap 9 BUN 8 Creatinine 0.56 Estimated GFR Greater than 89 Random Glucose 98 Calcium 8.3 L 04/02/18 06:41 WBC RBC Hgb Hct MCV MCH MCHC RDW Plt Count MPV Neut % (Auto) Lymph % (Auto) [place] % (Auto) Eos % (Auto) Baso % (Auto) Neut # (Auto) Lymph # (Auto) [place] # (Auto) Eos # (Auto) Baso # (Auto) WBC Differential Differential Comment Sodium 139 Potassium 3.7 Chloride 102 Carbon Dioxide 29.2 Anion Gap 8 BUN 9 Creatinine 0.63 Estimated GFR Greater than 89 Random Glucose 97 Calcium 8.0 L Assessment and Plan - Assessment (1) Cord compression Code(s): G95.20 - Unspecified cord compression Status: Acute (2) Protrusion of cervical intervertebral disc Code(s): M50.20 - Other cervical disc displacement, unspecified cervical region Status: Acute - Plan [place]: Slipped and fell backwards striking her head and mid back. BUE paresthesias, weakness on left. ?LOC. GCS 15. INJURIES: C4-C5 mild disc protrusion and impression on anterior cord C5-C6 disc protrusion w/ mild cord compression C6-C7 disc herniations, impingement on the cord (chronic) LUE radiculopathy PMHx: Chronic spinal stenosis. Disc herniations. Ulcerative colitis. Crohn's disease. Previous DVT from a PICC C4-C5 mild disc protrusion and impression on anterior cord, C5-C6 disc protrusion w/ mild cord compression, C6-C7 disc herniations, impingement on the cord, LUE radiculopathy Neurosurgery consulted 03/31: C5/6, C6/7 Anterior Cervical Discectomy and fusion with spinal instrumentation Continue neuro checks Pain control- Discontinued Dilaudid IV and added Fentanyl patch Bowel regimen OOB- PT and OT ordered Lovenox for DVT prophylaxis ST consulted for swallow eval Decadron x4 doses per NS Pre-existing conditions: Chronic spinal stenosis, Disc herniations, Ulcerative colitis, Crohn's disease Resume home medications Plan of care discussed with patient and RN at bedside. Collaborating Trauma MD agrees with plan. Case management consulted to assist with discharge planning. Plan to DC home with [facility] when pain better controlled and patient cleared by NS.
--- NOTE | 2018-04-02 13:21 | P.PNNS ---
Subjective Interval history: April 02, 2018 The patient has essentially been stable overnight. She still complains of neck pain and difficulty swallowing. He remains quite anxious. Physical Exam Vital signs: Vital Signs 04/01/18 16:31 04/01/18 17:32 04/01/18 18:43 Temperature 101.7 F H Pulse Rate 112 H Respiratory Rate 16 18 18 Blood Pressure 146/85 H Pulse Oximetry 95 04/01/18 19:16 04/01/18 21:19 04/01/18 23:23 Temperature 99.6 F Pulse Rate 107 H Respiratory Rate 17 16 17 Blood Pressure 110/66 Pulse Oximetry 95 04/01/18 23:28 04/02/18 01:25 04/02/18 03:47 Temperature 99.8 F H Pulse Rate 102 H Respiratory Rate 17 17 17 Blood Pressure 106/66 Pulse Oximetry 95 04/02/18 06:36 04/02/18 08:00 04/02/18 08:01 Temperature 99.5 F Pulse Rate 96 H Respiratory Rate 17 16 16 Blood Pressure 102/69 Pulse Oximetry 92 L 04/02/18 10:30 04/02/18 12:07 Temperature Pulse Rate Respiratory Rate 16 18 Blood Pressure Pulse Oximetry Intake & Output 04/01/18 04/02/18 04/02/18 18:59 06:59 18:59 Intake Total 1000 / 1000 Balance 1000 / 1000 Weight 72.8 kg Intake: IV 1000 / 1000 NS Inj 1,000 ML @ 100 mls/hr IV 1000 / 1000 .CONT .Q10H [facility] Rx#:[id number] Other: # Voids 1 5 1 Date of Last Bowel Movement 03/29/18 03/29/18 03/29/18 - Routine Neurological Exam April 02, 2018 The patient is sitting up in bed is into the room. She is in no acute distress. She is somewhat anxious. On neurological examination, mental status testing finds her to be awake and alert. She is oriented by 3. Cognitive functions grossly intact. Her speech is fluent. Cranial nerve testing 2 through 12 is grossly intact. There were no focal motor nor sensory deficits. Apparently the patient is ambulatory and continent. The wound is clear. There is no significant swelling nor drainage. - Urinary Catheter Management Indwelling Urethral Catheter Cath placed during this visit: yes, but has since been removed by the nurse Reason for continuing: Hourly intake/output Insertion date: 03/31/18 Insertion time: 14:30 Removal date: 04/01/18 Removal time: 09:15 Assessment and Plan - Plan 54 yo female with multi-level cervical disease,with progressive neck pain and left upper extremity radiculopathy s/p fall. GCS-15 Acute on chronic disc disease would admit for pain control Neuro checks q 4hrs soft cervical collar for comfort No indications for steroid therapy Will follow 03/27/2018 continues to complain of left C7/C8 radicular pain MRI Cervical spine was again reviewed by neurosurgery team she has multilevel spondylosis causing NF stenosis no significant cord compression, EMG/NCV of upper extremities with Dr. Celaya to better assess continue supportive care will follow 03/28/2018 patient unable to complete EMG testing with Dr. Celaya this morning due to pain intolerance patient tentatively scheduled this Tuesday for ACDF EMG to be reattempted tomorrow will follow 03/29/18 repeat EMG/NCV this morning, provide valium prior to exam follow up EMG result Neurosurgery team has again discussed with the patient regarding surgery and answered all questions and concerns will follow 03/30/[address] Celaya 03/29/18, results reported to Dr. Morales Patient continues to have LUE weakness Patient scheduled for ACDF of C5-6, C6-7 this Tuesday03/31/18 Continue current medical management will follow April 01, 2018 Patient is stable postoperative day #1 status post anterior cervical discectomy and fusion at C5-C6 and C6-C7. He is complaining of some mild dysphagia. She has been placed on a clear liquid diet. Neurosurgery will follow. Your 2018 The patient is stable postoperative day #2 status post anterior cervical discectomies and fusions at C5-C6 and C6-C7. Her cervical myeloradiculopathy is stable and somewhat improved postoperatively. She still complains of incisional and neck pain and dysphagia. I will begin a short course of steroids. She requires physical therapy, occupational therapy, and mobilization. Neurosurgery will follow.
[2018-04-03] MEDS: Methocarbamol 500 MG Tablet PO SCH ×3 (05:17→21:16)
[2018-04-03] MEDS: Gabapentin Liq 250 MG/5 ML UDC PO SCH ×4 (07:52→17:32)
[2018-04-03] MEDS: Lidocaine 5% Patch T-DERMAL SCH ×2 (07:54→12:50)
[2018-04-03] MEDS: Enoxaparin Inj 30 MG/0.3 ML Syringe SQ SCH ×4 (07:55→20:33)
[2018-04-03] MEDS: Mesalamine 800 MG Tablet DR PO SCH ×2 (07:55→12:50)
[2018-04-03] MEDS: Allopurinol 100 MG Tablet PO SCH ×2 (07:56→12:51)
[2018-04-03] MEDS: Docusate Sodium 100 MG Capsule PO SCH ×2 (12:50→20:32)
[2018-04-03] MEDS: Sodium Chloride 0.9% 2 ML Flush BID IV.FLUSH SCH ×3 (12:51→20:34)
--- NOTE | 2018-04-03 13:16 | P.PN ---
Subjective Interval history: Still reporting post-op pain Ambulating independently in room Reports she still has throat soreness with swallowing D/W Analisa with NS who cleared patient for DC Physical Exam Vital signs: Vital Signs 04/02/18 14:52 04/02/18 15:53 04/02/18 18:39 Temperature 99.1 F Pulse Rate 94 H Respiratory Rate 18 16 18 Blood Pressure 123/80 Pulse Oximetry 92 L 04/02/18 20:22 04/02/18 22:40 04/02/18 23:28 Temperature 98.3 F 98.2 F Pulse Rate 100 H 92 H Respiratory Rate 16 16 18 Blood Pressure 132/87 110/69 Pulse Oximetry 97 95 04/03/18 03:38 04/03/18 08:00 Temperature 97.3 F L 98.3 F Pulse Rate 96 H 90 Respiratory Rate 16 18 Blood Pressure 138/83 140/78 Pulse Oximetry 95 98 Intake & Output 04/02/18 04/03/18 04/03/18 18:59 06:59 18:59 Intake Total 960 / 960 Balance 960 / 960 Weight 74.6 kg Intake: Oral 960 / 960 Other: # Voids 1 4 Date of Last Bowel Movement 03/29/18 04/01/18 Narrative: GENERAL: 52 yo female sitting in bed, pleasant. SKIN: Warm and dry. NECK: Trachea midline. No JVD. [place] J collar. Anterior neck steri-strips intact. CARDIOVASCULAR: Regular rate and rhythm. RESPIRATORY: Lungs clear to auscultation bilaterally. GASTROINTESTINAL: Abdomen soft, non-tender, nondistended. + BS. MUSCULOSKELETAL: Extremities without cyanosis, or edema. LUE 4/5, RUE 5/5, MAEW , + perfused NEUROLOGICAL: Awake and alert. Normal speech. - Urinary Catheter Management Indwelling Urethral Catheter Cath placed during this visit: yes, but has since been removed by the nurse Reason for continuing: Hourly intake/output Insertion date: 03/31/18 Insertion time: 14:30 Removal date: 04/01/18 Removal time: 09:15 Results - Labs CBC & Chem 7: 04/02/18 06:41 04/02/18 06:41 Assessment and Plan - Assessment (1) Cord compression Code(s): G95.20 - Unspecified cord compression Status: Acute (2) Protrusion of cervical intervertebral disc Code(s): M50.20 - Other cervical disc displacement, unspecified cervical region Status: Acute - Plan TAZLINA: Slipped and fell backwards striking her head and mid back. BUE paresthesias, weakness on left. ?LOC. GCS 15. INJURIES: C4-C5 mild disc protrusion and impression on anterior cord C5-C6 disc protrusion w/ mild cord compression C6-C7 disc herniations, impingement on the cord (chronic) LUE radiculopathy PMHx: Chronic spinal stenosis. Disc herniations. Ulcerative colitis. Crohn's disease. Previous DVT from a PICC C4-C5 mild disc protrusion and impression on anterior cord, C5-C6 disc protrusion w/ mild cord compression, C6-C7 disc herniations, impingement on the cord, LUE radiculopathy Neurosurgery consulted 03/31: C5/6, C6/7 Anterior Cervical Discectomy and fusion with spinal instrumentation Stable neuro checks Pain control Bowel regimen OOB- PT and OT ordered Lovenox for DVT prophylaxis ST consulted for swallow eval D/W KELSEY Hauser and patient cleared for DC Pre-existing conditions: Chronic spinal stenosis, Disc herniations, Ulcerative colitis, Crohn's disease Resume home medications Plan of care discussed with patient and RN at bedside. Collaborating Trauma MD agrees with plan. Case management consulted to assist with discharge planning. Plan to DC home with HHC but patient refusing HHC. Clear for DC home with outpatient PT. Reports her mother in law plans to stay with her at home.
[2018-04-03] MEDS ORDERED: Phenol 1.4% 180 ML Spray Bottle PO PRN (13:38)
--- NOTE | 2018-04-03 13:38 | P.PNNS ---
Subjective Interval history: patient this morning reports to be doing better. she c/o of sore throat. she also reports current pain regimen not giving adequate control, requesting increase frequency as pain causes difficulty sleeping at night <Analisa Melo - Last Filed: 04/03/18 13:34> Physical Exam Vital signs: Vital Signs 04/02/18 14:52 04/02/18 15:53 04/02/18 18:39 Temperature 99.1 F Pulse Rate 94 H Respiratory Rate 18 16 18 Blood Pressure 123/80 Pulse Oximetry 92 L 04/02/18 20:22 04/02/18 22:40 04/02/18 23:28 Temperature 98.3 F 98.2 F Pulse Rate 100 H 92 H Respiratory Rate 16 16 18 Blood Pressure 132/87 110/69 Pulse Oximetry 97 95 04/03/18 03:38 04/03/18 08:00 Temperature 97.3 F L 98.3 F Pulse Rate 96 H 90 Respiratory Rate 16 18 Blood Pressure 138/83 140/78 Pulse Oximetry 95 98 Intake & Output 04/02/18 04/03/18 04/03/18 18:59 06:59 18:59 Intake Total 960 / 960 Balance 960 / 960 Weight 74.6 kg Intake: Oral 960 / 960 Other: # Voids 1 4 Date of Last Bowel Movement 03/29/18 04/01/18 Narrative: April 03, 2018 sitting up in bedside commode getting washed cervical collar in place wound clean and dry with steri strips left network analyst and triceps stronger 4+ to 5- today - Urinary Catheter Management Indwelling Urethral Catheter Cath placed during this visit: yes, but has since been removed by the nurse Reason for continuing: Hourly intake/output Insertion date: 03/31/18 Insertion time: 14:30 Removal date: 04/01/18 Removal time: 09:15 <Analisa Melo - Last Filed: 04/03/18 13:34> Vital signs: Vital Signs 04/03/18 12:00 04/03/18 16:00 04/03/18 21:46 Temperature 98.4 F 98.5 F Pulse Rate 96 H 88 Respiratory Rate 18 18 17 Blood Pressure 148/85 H 124/71 Pulse Oximetry 96 96 04/03/18 22:05 04/04/18 00:00 04/04/18 02:36 Temperature 99 F 98.1 F Pulse Rate 78 72 Respiratory Rate 18 18 18 Blood Pressure 147/80 H 118/67 Pulse Oximetry 95 94 L 04/04/18 06:50 Temperature Pulse Rate Respiratory Rate 17 Blood Pressure Pulse Oximetry Intake & Output 04/03/18 04/04/18 04/04/18 18:59 06:59 18:59 Intake Total 160 / 160 Balance 160 / 160 Weight 73.4 kg Intake: Oral 160 / 160 Other: # Voids 3 Date of Last Bowel Movement 04/01/18 04/01/18 # Bowel Movements 0 - Urinary Catheter Management Indwelling Urethral Catheter Cath placed during this visit: no <Luis Morales - Last Filed: 04/04/18 08:59> Assessment and Plan - Plan 54 yo female with multi-level cervical disease,with progressive neck pain and left upper extremity radiculopathy s/p fall. GCS-15 Acute on chronic disc disease would admit for pain control Neuro checks q 4hrs soft cervical collar for comfort No indications for steroid therapy Will follow 03/27/2018 continues to complain of left C7/C8 radicular pain MRI Cervical spine was again reviewed by neurosurgery team she has multilevel spondylosis causing NF stenosis no significant cord compression, EMG/NCV of upper extremities with Dr. Celaya to better assess continue supportive care will follow 03/28/2018 patient unable to complete EMG testing with Dr. Celaya this morning due to pain intolerance patient tentatively scheduled this Tuesday for ACDF EMG to be reattempted tomorrow will follow 03/29/18 repeat EMG/NCV this morning, provide valium prior to exam follow up EMG result Neurosurgery team has again discussed with the patient regarding surgery and answered all questions and concerns will follow 03/30/[address] Celaya 03/29/18, results reported to Dr. Morales Patient continues to have LUE weakness Patient scheduled for ACDF of C5-6, C6-7 this Tuesday03/31/18 Continue current medical management will follow April 01, 2018 Patient is stable postoperative day #1 status post anterior cervical discectomy and fusion at C5-C6 and C6-C7. He is complaining of some mild dysphagia. She has been placed on a clear liquid diet. Neurosurgery will follow. 2018 The patient is stable postoperative day #2 status post anterior cervical discectomies and fusions at C5-C6 and C6-C7. Her cervical myeloradiculopathy is stable and somewhat improved postoperatively. She still complains of incisional and neck pain and dysphagia. I will begin a short course of steroids. She requires physical therapy, occupational therapy, and mobilization. Neurosurgery will follow. April 03, 2018 POD #3 neuro exam improving, continue present pain regimen, dw patient we are unable to increase dosage or frequency at this time will increase Neurontin dose and add sleep aid at bedtime as needed add Chloraseptic spray for store throat ST eval for swallowing <Analisa Melo - Last Filed: 04/03/18 13:34> - Attending Attestation Improving Neuro exam Incision clean, dry I have personally seen and examined the patient, reviewed pertinent imaging studies and labs with the Neurosurgery team. I agree with Ms. Melo's ( Neurosurgey PA), assessment as well as plan of care. <Luis Morales - Last Filed: 04/04/18 08:59>
[2018-04-04] MEDS: Methocarbamol 500 MG Tablet PO SCH (06:26)
[2018-04-04] MEDS: Enoxaparin Inj 30 MG/0.3 ML Syringe SQ SCH (09:33)
[2018-04-04] MEDS: Lidocaine 5% Patch T-DERMAL SCH (09:33)
[2018-04-04] MEDS: Docusate Sodium 100 MG Capsule PO SCH (09:33)
[2018-04-04] MEDS: Mesalamine 800 MG Tablet DR PO SCH (09:33)
[2018-04-04] MEDS: Sodium Chloride 0.9% 2 ML Flush BID IV.FLUSH SCH (09:34)
[2018-04-04] MEDS: Allopurinol 100 MG Tablet PO SCH (09:34)
[2018-04-04] MEDS: Gabapentin Liq 250 MG/5 ML UDC PO SCH (09:34)
[2018-04-04 10:26] VITALS: BP 130/79; PULSE 96; RESP 20; TEMP 98.4; O2SAT 95
--- NOTE | 2018-04-04 11:51 | P.PNNS ---
Subjective Interval history: reports feeling overall better today tolerating diet <Analisa Melo - Last Filed: 04/04/18 11:48> Physical Exam Vital signs: Vital Signs 04/03/18 12:00 04/03/18 16:00 04/03/18 21:46 Temperature 98.4 F 98.5 F Pulse Rate 96 H 88 Respiratory Rate 18 18 17 Blood Pressure 148/85 H 124/71 Pulse Oximetry 96 96 04/03/18 22:05 04/04/18 00:00 04/04/18 02:36 Temperature 99 F 98.1 F Pulse Rate 78 72 Respiratory Rate 18 18 18 Blood Pressure 147/80 H 118/67 Pulse Oximetry 95 94 L 04/04/18 06:50 04/04/18 08:00 Temperature 98.4 F Pulse Rate 96 H Respiratory Rate 17 20 Blood Pressure 130/79 Pulse Oximetry 95 Intake & Output 04/03/18 04/04/18 04/04/18 18:59 06:59 18:59 Intake Total 160 / 160 Balance 160 / 160 Weight 73.4 kg Intake: Oral 160 / 160 Other: # Voids 3 Date of Last Bowel Movement 04/01/18 04/01/18 04/01/18 # Bowel Movements 0 Narrative: A&Ox3 KIRK and follows steristrips in place to neck, D&I normal speech cervical collar in place - Urinary Catheter Management Indwelling Urethral Catheter Cath placed during this visit: yes, but has since been removed by the nurse Reason for continuing: Hourly intake/output Insertion date: 03/31/18 Insertion time: 14:30 Removal date: 04/01/18 Removal time: 09:15 <Analisa Melo - Last Filed: 04/04/18 11:48> Vital signs: Vital Signs 04/03/18 21:46 04/03/18 22:05 04/04/18 00:00 Temperature 99 F 98.1 F Pulse Rate 78 72 Respiratory Rate 17 18 18 Blood Pressure 147/80 H 118/67 Pulse Oximetry 95 94 L 04/04/18 02:36 04/04/18 06:50 04/04/18 08:00 Temperature 98.4 F Pulse Rate 96 H Respiratory Rate 18 17 20 Blood Pressure 130/79 Pulse Oximetry 95 Intake & Output 04/03/18 04/04/18 04/04/18 18:59 06:59 18:59 Intake Total 160 / 160 Balance 160 / 160 Weight 73.4 kg Intake: Oral 160 / 160 Other: # Voids 3 Date of Last Bowel Movement 04/01/18 04/01/18 04/01/18 # Bowel Movements 0 - Urinary Catheter Management Indwelling Urethral Catheter Cath placed during this visit: no <Luis Morales - Last Filed: 04/04/18 16:51> Assessment and Plan - Plan 54 yo female with multi-level cervical disease,with progressive neck pain and left upper extremity radiculopathy s/p fall. GCS-15 Acute on chronic disc disease would admit for pain control Neuro checks q 4hrs soft cervical collar for comfort No indications for steroid therapy Will follow 03/27/2018 continues to complain of left C7/C8 radicular pain MRI Cervical spine was again reviewed by neurosurgery team she has multilevel spondylosis causing NF stenosis no significant cord compression, EMG/NCV of upper extremities with Dr. Celaya to better assess continue supportive care will follow 03/28/2018 patient unable to complete EMG testing with Dr. Celaya this morning due to pain intolerance patient tentatively scheduled this Tuesday for ACDF EMG to be reattempted tomorrow will follow 03/29/18 repeat EMG/NCV this morning, provide valium prior to exam follow up EMG result Neurosurgery team has again discussed with the patient regarding surgery and answered all questions and concerns will follow 03/30/[address] Celaya 03/29/18, results reported to Dr. Morales Patient continues to have LUE weakness Patient scheduled for ACDF of C5-6, C6-7 this Tuesday03/31/18 Continue current medical management will follow April 01, 2018 Patient is stable postoperative day #1 status post anterior cervical discectomy and fusion at C5-C6 and C6-C7. He is complaining of some mild dysphagia. She has been placed on a clear liquid diet. Neurosurgery will follow. 2018 The patient is stable postoperative day #2 status post anterior cervical discectomies and fusions at C5-C6 and C6-C7. Her cervical myeloradiculopathy is stable and somewhat improved postoperatively. She still complains of incisional and neck pain and dysphagia. I will begin a short course of steroids. She requires physical therapy, occupational therapy, and mobilization. Neurosurgery will follow. April 03, 2018 POD #3 neuro exam improving, continue present pain regimen, dw patient we are unable to increase dosage or frequency at this time will increase Neurontin dose and add sleep aid at bedtime as needed add Chloraseptic spray for store throat ST eval for swallowing 04/04/2018 POD#4 clinically improved pain and swallowing improved patient multiple questions answered will follow up in the office in 4-6 weeks ok to discharge home from neurosurgical standpoint <Analisa Melo - Last Filed: 04/04/18 11:48> - Attending Attestation I have personally seen and examined the patient, reviewed pertinent labs and imaging studies with the Neurosurgery team. I agree with Ms. Melo's ( Neurosurgery PA), assessment as well as plan of care. <Luis Morales - Last Filed: 04/04/18 16:51>
--- NOTE | 2018-04-04 17:16 | P.DS ---
Date of admission: 03/25/18 21:40 Primary care physician: No Primary Care Physician Brief History from admission: S/P Fall DS: Diagnosis - Discharge Diagnosis (1) Cord compression Status: Acute (2) Protrusion of cervical intervertebral disc Status: Acute DS: Medications - Discharge Medications Prescriptions: gabapentin [Neurontin] 400 mg PO TID #30 cap methocarbamol 500 mg PO Q8HR #30 tab oxycodone-acetaminophen [Percocet] 1 tab PO Q4-6H PRN #18 tab PRN Reason: Acute Pain DS: Summary Hospital Course: SHIV: Slipped and fell backwards striking her head and mid back. BUE paresthesias, weakness on left. ?LOC. GCS 15. INJURIES: C4-C5 mild disc protrusion and impression on anterior cord C5-C6 disc protrusion w/ mild cord compression C6-C7 disc herniations, impingement on the cord (chronic) LUE radiculopathy PMHx: Chronic spinal stenosis. Disc herniations. Ulcerative colitis. Crohn's disease. Previous DVT from a PICC C4-C5 mild disc protrusion and impression on anterior cord, C5-C6 disc protrusion w/ mild cord compression, C6-C7 disc herniations, impingement on the cord, LUE radiculopathy Neurosurgery consulted, F/U outpatient 03/31: C5/6, C6/7 Anterior Cervical Discectomy and fusion with spinal instrumentation Stable neuro checks Maintain [place] J collar Pain control Bowel regimen OOB- PT and OT ordered ST consulted for swallow eval - cleared for regular diet. No s/s of aspiration NS cleared for DC Pre-existing conditions: Chronic spinal stenosis, Disc herniations, Ulcerative colitis, Crohn's disease Resume home medications F/U with PCP in 1 week Plan of care discussed with patient and RN at bedside. Collaborating Trauma MD agrees with plan. Case management consulted to assist with discharge planning. Plan to DC home with HHC but patient refusing HHC. Clear for DC home with outpatient PT. Reports her mother in law plans to stay with her at home. - Time Spent with Patient Total time spent providing and/or coordinating discharge services: Greater than 30 minutes - Quality: VTE Deep Vein Thrombosis/Pulmonary Embolism Present on Admission: No Exam Vital signs: Vital Signs 04/03/18 21:46 04/03/18 22:05 04/04/18 00:00 Temperature 99 F 98.1 F Pulse Rate 78 72 Respiratory Rate 17 18 18 Blood Pressure 147/80 H 118/67 Pulse Oximetry 95 94 L 04/04/18 02:36 04/04/18 06:50 04/04/18 08:00 Temperature 98.4 F Pulse Rate 96 H Respiratory Rate 18 17 20 Blood Pressure 130/79 Pulse Oximetry 95 Intake & Output 04/03/18 04/04/18 04/04/18 18:59 06:59 18:59 Intake Total 160 / 160 Balance 160 / 160 Weight 73.4 kg Intake: Oral 160 / 160 Other: # Voids 3 Date of Last Bowel Movement 04/01/18 04/01/18 04/01/18 # Bowel Movements 0 Narrative: GENERAL: 52 yo female standing at bedside with [place] J collar on. SKIN: Warm and dry. NECK: Trachea midline. No JVD. [place] J collar. Anterior neck steri-strips intact. CARDIOVASCULAR: Regular rate and rhythm. RESPIRATORY: Lungs clear to auscultation bilaterally. GASTROINTESTINAL: Abdomen soft, non-tender, nondistended. + BS. MUSCULOSKELETAL: Extremities without cyanosis, or edema. LUE 4/5, RUE 5/5, MAEW , + perfused NEUROLOGICAL: Awake and alert. Normal speech. Results Procedures completed during hospitalization: 03/31: C5/6, C6/7 Anterior Cervical Discectomy and fusion with spinal instrumentation - Impressions ITS Impressions Thoracic Spine CT 03/25/18 00:00 CONCLUSION: 1. Kyphosis and degenerative changes. 2. No fracture. Head CT 03/25/18 15:30 CONCLUSION: 1. No acute intracranial abnormality . . Cervical Spine MRI 03/25/18 16:44 CONCLUSION: 1. At C5-6 there is a broad-based disc protrusion, worse on the right side with moderate AP canal stenosis, mild cord compression and foraminal stenosis, worse on the right. 2. At C6-7 is a broad-based disc protrusion with mild AP canal stenosis and mild flattening of the cord. 3. At C4-5 there is a mild impression on the anterior cord from disc protrusion. 4. No acute fracture or spondylolisthesis. Venous Doppler Study 03/27/18 00:00 CONCLUSION: Normal venous Doppler study of the right upper extremity. Chest X-Ray 03/27/18 06:00 CONCLUSION: No acute cardiopulmonary process Cervical Spine X-Ray 03/31/18 00:00 CONCLUSION: Post surgical changes at C5-6 and C6-7. Cervical Spine CT 04/01/18 06:00 CONCLUSION: 1. Postoperative changes as above. Discharge Plan - Discharge Disposition Patient Disposition: 01 Discharge Home - Discharge Condition Condition: Stable - Discharge Order Discharge Orders: Discharge Order (Routine); Ordered 04/03/18 Ordered By: Tammy Castelan - Physicians Team Primary Care Provider: Primary Care Yahaira,Gely Attending Provider: Sincere Steen Other Providers: Luis Morales MD ; Kelvin Mauricio MD ; Zeke Gong MD ; Systems,[employer] ; Javed Caneal MD ; Olivia Marie ARNP ; Sincere Steen MD ; Jena Blanco MD ; Tammy Castelan ARNP ; Joanie Deras MD ; Hilda Celaya MD
--- NOTE | 2018-04-07 10:41 | MP ---
cc: Luis Morales MD DATE OF OPERATION: 03/31/2018 ATTENDING PHYSICIAN: Luis Morales MD PREOPERATIVE DIAGNOSIS: C5-C6, C6-C7 cervical spondylosis with radiculopathy. POSTOPERATIVE DIAGNOSIS: C5-C6, C6-C7 cervical spondylosis with radiculopathy. PROCEDURE PERFORMED: C5-C6, C6-C7 anterior cervical diskectomy and fusion, spinal instrumentation, neuromonitoring and microscope. ANESTHESIA: General endotracheal anesthesia. SURGEON: Luis Morales MD ESTIMATED BLOOD LOSS: Less than 50 mL. PATHOLOGY: None sent. COMPLICATIONS: None sent. CONDITION: Extubated. Awake, alert, following commands, moving all 4 extremities well. No change from her preoperative state. She was taken back to the PACU. INDICATIONS: The patient is a pleasant 52-year-old female who was admitted to [facility] on 03/25/2018 . The patient reports 20 minutes. When I saw her in the emergency room, she reported severe neck pain along her left fourth and fifth digits. Additionally, she also noted small left toe. On my examination, she had bilateral weakness in the C5-C6 distribution on the right and C6-C7 on the left. The MRI of cervical spine showed a C5-C6 disk protrusion, worse on the right side, with moderate canal stenosis with intrusion into the neural foramen on the left side. Additionally, the patient's brief central cord syndrome resolved, and over the course of the next several days, the patient continued to be clinically symptomatic. She has failed conservative therapy in the past. EMG and nerve conduction studies were performed by which confirmed C6-C7 radiculopathies. Given the cervical spine MRI, CT, and the long history of neck pain and bilateral upper extremity radicular symptoms, I offered her a C5-C6 and C6-C7 anterior cervical diskectomy and fusion. The patient indicated she understood and agreed with the plan of care. Risks, benefits, and options were discussed including but not limited to infection, CSF leak, bowel injury, nerve injury, exacerbation of symptoms, failure to relieve symptoms, hemorrhage, bowel or bladder dysfunction, reoperation, possible were all explained. The patient indicated that she was understood, and informed consent was given. All questions were answered today. PROCEDURE IN DETAIL: The patient was taken to the operating room from the holding room. After peripheral IVs were placed, she was placed on the operating table in the supine position with all pressure points padded. A small transverse shoulder roll was then placed beneath her shoulders at the base of the cervical spine. With her head turned to the left, the left anterior region of the cervical spine was then shaved, prepped and draped in the usual sterile fashion. A sterile surgical marking pen was used to outline the midline and anterior border of the sternocleidomastoid muscle as well as sternal notch. A point within a natural crease in the patient's neck along the thyroid cartilage was used to extend the incision from the midline to the anterior border of the SCM . This was then infiltrated with 10 mL of 1% lidocaine with epinephrine. cutting sharply down to the platysma. Hemostasis was achieved with bipolar electrocoagulation. A single small self-retaining retractor was placed. Dissection ensued with Bovie electrocautery device and Metzenbaum scissors. Once the platysma was incised deep cervical soft tissue dissection space. Using retractors, tracheoesophageal cartilage was retracted medially and the laterally. needle was placed in the disk space. Intraoperative fluoroscopy confirmed that we were at C5-C6 disk space. microscope incised with a #11 blade. Multiple small pieces of degenerated disk material were then removed with the micropituitary rongeur. More than 75% of the disk was with spondylosis. Metzenbaums were then used to drill out the calcified disk material. We proceeded to do this all the way through the disk space and out to the calcified posterior longitudinal ligament. At this point, used 2 mm Kerrison punches to remove osteophytes as well as hemostasis achieved with bone wax as well as Surgicel. We then fluoroscopy ascertained that this was indeed in good position C6 level under direct microscopic visualization and continuous neuromonitoring. Then, was subsequently placed in the disk space after a full diskectomy. Copious irrigation ensued with antibiotic Betadine. Morcelized bone graft was packed into the disk space sutures for the platysma, followed by 3-0 inverted interrupted Vicryl sutures for the subcutaneous tissue and dermis, followed by Benzoin, Steri-Strips for the skin, bacitracin and Telfa and Tegaderm adhesive sterile dressing. At the end of the operation, all sponge and needle counts were correct. AP and lateral fluoroscopy confirmed that there was no . The patient tolerated the procedure well and was taken back to the recovery room, extubated, awake, alert, following commands, moving all 4 extremities well. No change from her preoperative state. MD DEEPAK Sánchez/shimon/lauri , 03:09 PM , 03:30 PM
--- NOTE | 2018-04-07 18:19 | MP ---
cc: Luis Morales MD DATE OF OPERATION: 03/31/2018 SERVICE: Neurosurgery. ATTENDING PHYSICIAN: Luis Morales MD PREOPERATIVE DIAGNOSIS: C5-C6 and C6-C7 cervical spondylosis with radiculopathy. POSTOPERATIVE DIAGNOSIS: C5-C6 and C6-C7 cervical spondylosis with radiculopathy. PROCEDURE PERFORMED: C5-C6 and C6-C7 anterior cervical diskectomy and fusion with spinal instrumentation, neuromonitoring, microscope. ANESTHESIA: General endotracheal anesthesia. SURGEON: Luis Morales MD ESTIMATED BLOOD LOSS: Less than 50 mL PATHOLOGY: None sent. CONDITION: Stable, extubated. Awake, alert, following commands, moving all 4 extremities well. No change from her preoperative state. INDICATIONS: The patient is a pleasant 52-year-old female who presented to [facility] Emergency Room status post mechanical fall, slipping backwards onto a doorway prior to arrival, subsequently hitting her head and her mid back. She reported severe neck and upper back pain and a constant, moderate severity, associated with numbness and tingling in her left fourth and fifth digits for the most part as well as some weakness in the left lower extremity with numbness in her left small toe. In addition, she did have some complaints of neuropathic type pain in bilateral upper extremities and a history of cervical spinal stenosis with disk herniations. She was admitted for observation subsequently given her progressive neck pain and left upper extremity radiculopathy. Upon further discussion, she had previously completed multiple courses of conservative therapy including physical therapy and yoga. Given her clinical symptoms and a central cord type picture as well as review of imaging studies showing significant stenosis, worst at C5-C6 where there was broad-based disc protrusion, worse on the right side with moderate AP canal stenosis, and at C6-C7 where there was broad-based disk protrusion with flattening of the spinal cord. I had extensive discussion with the patient regarding options. She has already failed conservative therapies. 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 I offered her a C5-C6 and C6-C7 anterior cervical diskectomy and fusion. Risks, benefits, and options were discussed. All questions were answered. The patient indicated that she understood and agreed with the plan of care and wished for us to proceed. Informed consent was given. PROCEDURE IN DETAIL: The patient was taken to the operating room from the holding room. After peripheral IVs were placed, she was subsequently endotracheally intubated and general endotracheal anesthesia ensued. She was placed on the operating room table in supine position with all pressure points padded with a small transverse shoulder roll beneath the base of her neck, with her head in slight extension in a donut. The left anterior region of the cervical spine was then shaved, prepped and draped in usual sterile fashion. A sterile surgical marking pen was used to outline the midline, the sternal notch, the anterior border of the sternocleidomastoid muscle (SCM). Then, a horizontal incision at the level of the tracheal cartilage, horizontally extending from the midline to the anterior border of the SCM. 10mL of lidocaine with 1% epinephrine was then injected subcutaneously into the presumed incision. A #15 blade was brought in the field, cutting sharply down the platysma. A small Weitlaner self-retaining retractor was placed. Hemostasis was achieved with the bipolar electrocautery device. The platysma was then incised with the Bovie electrocautery and Metzenbaum scissors. The superficial cervical fascia was incised with bipolar electrocautery and finger dissection. The omohyoid muscle was identified. The Cloward handles were used to retract the tracheoesophageal complex medially and the carotid vascular bundle laterally. We deepened our retractor, encountering the posterior cervical fascia. This was incised into the prevertebral disk space. AP and lateral fluoroscopy was used to confirm that we were at the C5-6 level, having placed a needle alongside the disk space, the presumed disk space, as there was no obvious disk space anteriorly with substantial osteophytes present. Using AP and lateral fluoroscopy view, the microscope was brought in the field, and the high-speed air drill with a matchstick was then used to drill through the osteophyte, encountering some soft disk material. Then, diskectomy ensued using a #11 blade to incised the annulus. Micropituitary rongeurs were used to remove the soft disk. At approximately mcc through the disk space, we encountered the hard disk and spondylosis. The high-speed air drill was then brought back into the field, drilling through the calcified disk into the calcified posterior longitudinal ligament (PLL). The PLL was resected with 1 and 2 mm Kerrison punches. Osteophytectomies were performed as well as bilateral partial foraminotomies. The cord was at that time very well decompressed. Using a Spine Wave blade technology intervertebral disk spacer, which was tapped gently into place, hemostasis achieved with Surgiflo. The blades were applied uneventfully, and we then turned our attention to the C6-C7 space where a second [place] pin was placed, and self-retaining retractors were subsequently placed as well. At this level, there was again an anterior osteophyte with bridging which was initially resected with the matchstick and high speed air drill. The anterior intervertebral disk space was reconstructed using the drill. Soft tissue was then removed with micropituitary rongeurs under direct microscopic visualization. Again, spondylotic disk material was identified, and this was drilled through all the way to the calcified PLL. Once this part of the operation was complete, I continued to gently drill through the PLL into the epidural space. Any residual osteophyte or PLL was then removed with 1 and 2 mm Kerrison punches, simultaneously performing bilateral foraminotomies as well. Another Spine Wave intervertebral disk space, approximately 6 mm, was used, tapped gently into place under direct microscopic as well as fluoroscopic visualization. The integrated blades were then released and secure anchoring the spacer adequately. Lateral fluoroscopy views showed that we had good sagittal alignment. Copious irrigation ensued with antibiotic irrigation, followed by Betadine, followed by additional antibiotic irrigation. At the end of the operation, all sponge and needle counts were correct. The incision was then closed in anatomic layers using 2-0 inverted interrupted Vicryl sutures for the platysma, followed by 3-0 inverted interrupted Vicryl sutures for the subcutaneous tissue and dermis, followed by Mastisol and Steri-Strips for the skin. Bacitracin ointment, Telfa, Tegaderm and benzoin used for the dressing. At the end of the operation, all sponge and needle counts were correct. The patient tolerated the procedure well and was taken back to the recovery room, extubated, awake, alert, following commands, moving all 4 extremities well. No change from her preoperative state. MD DEEPAK Sánchez/shimon/marco , 05:30 PM , 05:46 PM JUSTIN
== END 2018-04-04 10:41 | disposition home or self-care (01) | DRG 472 ==
LOC: NEPI 15:21 → NEDA 21:40 → N06 23:20
PROVIDERS: ADMIT Surgery; ATTEND Surgery
CPT/HCPCS: 70450; 71010; 71045; 72040; 72125; 72128; 72141; 76000; 76937; 80048; 81001; 82435; 82565; 82947; 84132; 84295; 84520; 85025; 85610; 85730; 86850; 86900; 86901; 90774; 90775; 90776; 90784; 92526; 92610; 93005; 93971; 94150; 96374; 96375; 96376; 97110; 97116; 97162; 97167; 97168; 97530; 97535; 99285; C1713; C8952; C9113; G0195; J0131; J0330; J1100; J1170; J1650; J1720; J2250; J2270; J2370; J2405; J2704; J2710; J3010; J3370; J7030; J7040; J7050; L0150; L0172